=== PATIENT | female | born 1960 | race Caucasian/White ===

== ENCOUNTER → 2016-10-30 | Outpatient (CLI) | payer OTHER | END | disposition home or self-care (01) | LOC: C.PAPS 12:39 | PROVIDERS: ATTEND Obstetrics & Gynecology | DX: Z01.419 Encounter for gynecological examination (general) (routine) without abnormal findings (principal) ==

== ENCOUNTER → 2017-10-06 | Outpatient (CLI) | payer OTHER ==
--- NOTE | 2017-10-07 13:29 | MAMMOGRAPHY REPORT ---
BILATERAL DIGITAL SCREENING MAMMOGRAM TOMOSYNTHESIS WITH CAD: 10/06/2017 CLINICAL HISTORY: Routine screening. Patient has no complaints. TECHNIQUE: Breast tomosynthesis in addition to standard 2D mammography was performed. Current study was also evaluated with a Computer Aided Detection (CAD) system. COMPARISON: Comparison is made to exams dated: 08/09/2016 mammogram, 04/13/2015 mammogram, 12/21/2013 m ammogram, 12/15/2012 mammogram, 12/09/2011 mammogram, and 12/03/2010 mammogram - [facility] ter. BREAST COMPOSITION: There are scattered areas of fibroglandular density in both breasts. FINDINGS: The parenchymal pattern is unchanged. No developing mass, architectural distortion or clus ter of suspicious microcalcifications is seen in either breast. IMPRESSION: ACR BI-RADS CATEGORY 2: BENIGN There is no mammographic evidence of malignancy. A 1 year screening mammogram is recommended. The pa tient will receive written notification of the results. Approximately 10% of breast cancers are not detected with mammography. A negative mammographic report should not delay biopsy if a clinically suggestive mass is present. Va Yang M.D. ay/:10/06/2017 16:23:26 Contract Attorney: Amy ALBERT(Daija)(Jasmine), [facility] letter sent: Normal 1/2 BI-RADS Code: ACR BI-RADS Category 2: Benign
== END | disposition home or self-care (01) ==
LOC: C.MAMM 13:07
PROVIDERS: ATTEND Obstetrics & Gynecology
DX: Z12.31 Encounter for screening mammogram for malignant neoplasm of breast (principal)

== ENCOUNTER → 2017-11-21 | Outpatient (CLI) | payer OTHER | END | disposition home or self-care (01) | LOC: C.PAPS 16:01 | PROVIDERS: ATTEND Obstetrics & Gynecology | DX: Z01.419 Encounter for gynecological examination (general) (routine) without abnormal findings (principal) ==

== ENCOUNTER → 2017-12-10 | Outpatient (CLI) | payer OTHER ==
[2017-12-10 13:33] LABS: BLOOD UREA NITROGEN 11 mg/dl (7-18); CALCIUM 8.9 mg/dl (8.5-10.1); CARBON DIOXIDE 30 mmol/L (21-32); CHOLESTEROL 190 mg/dl (0-200); CREATININE 0.77 mg/dl (0.60-1.20); GLUCOSE 100 mg/dl (70-99); POTASSIUM 3.8 mmol/L (3.5-5.1); SODIUM 137 mmol/L (136-145)
[2017-12-10 13:43] LABS: LDL CHOLESTEROL CALCULATED 101 mg/dl
== END | disposition home or self-care (01) ==
LOC: C.LABPVFM 11:01
PROVIDERS: ATTEND Nurse Practitioner
DX: Z13.1 Encounter for screening for diabetes mellitus (principal); Z13.220 Encounter for screening for lipoid disorders; Z13.29 Encounter for screening for other suspected endocrine disorder

== ENCOUNTER 2020-05-03 10:04 | Observation (INO) ==
--- NOTE | 2020-03-31 16:11 | PAT Medication Instructions ---
Medication Instructions Date of Service March 31, 2020 Home Medications Medication Instructions Recorded tramadol 50 mg tablet 50 mg PO Q6H PRN #20 tab 12/07/19 mnucixyh-xey-nntwuoy sulfate 4.5 mg iron tablet 1 mg PO QAM tramadol 50 mg tablet 50 mg PO Q6H PRN Probiotic 1 tab PO QAM ibuprofen [Advil] 200 mg PO Q6H PRN omeprazole 20 mg PO DAILY PRN turmeric 400 mg PO QAM ASK your surgeon for instructions ibuprofen [Advil] 200 mg PO Q6H PRN STOP taking 2 weeks before surgery turmeric 400 mg PO QAM DO NOT take the morning of surgery memaqcre-sfo-jcqwtia sulfate 4.5 mg iron tablet 1 mg PO QAM Probiotic 1 tab PO QAM Take morning of surgery With a small sip of water, OTHERWISE NOTHING TO EAT OR DRINK AFTER MIDNIGHT: tramadol 50 mg tablet 50 mg PO Q6H PRN (okay to take up to 4 hours prior to surgery if needed) omeprazole 20 mg PO DAILY PRN (if needed) Take evening before surgery tramadol 50 mg tablet 50 mg PO Q6H PRN (if needed) Other Notes If you have any questions please call us at [phone] or [phone] or [phone] or [phone]
--- NOTE | 2020-04-03 12:48 | Anesthesiology Consultation ---
Date of Service April 03, 2020 Assessment & Plan (1) Encounter for pre-operative examination: "TERESA" COVID Status: As of 04/03 assessment, patient denies travel to endemic area, known exposure/sick contacts, or symptoms of COVID19. Patient instructed that they and their household members must follow strict social distancing guidelines, wear a mask in public and avoid travel for 14 days prior to surgery. Preoperative COVID19 testing to be completed prior to surgery per surgeon's arrangements. Patient made aware to self-isolate as much as possible between COVID testing and surgery. Chart Review Chart Review: Acceptable Risk for Surgery (pending surgeon ordered PCP clearance) and Patient seen in Pre Admission Testing Teaching & Discussion Instructed NPO after midnight before surgery, except medications with 15 cc of water. Medication instructions provided according to the PAT guidelines. History Surgery Operation Date: 05/03/20 13:00 Proposed Procedures p Left Total Knee Arthroplasty - Jay Waggoner DO Height/Weight Height: 5 ft 3.5 in Weight: 95 kg Allergies Allergy/AdvReac Type Severity Reaction Status Date / Time diphenhydramine AdvReac Unknown Anxiety Verified 03/29/20 12:20 celecoxib [From Celebrex] AdvReac mouth Verified 03/29/20 11:26 ulcers diclofenac AdvReac mouth Verified 03/29/20 11:26 ulcers tramadol AdvReac itching, Verified 03/29/20 12:20 mouth ulcers Medications Home Medications Medication Instructions Recorded Confirmed Last Taken zwojthku-tru-nqfabve sulfate 4.5 1 mg PO QAM tab 04/29/19 03/29/20 06/23/19 mg iron tablet tramadol 50 mg tablet 50 mg PO Q6H PRN #20 tab 12/07/19 03/29/20 Unknown Probiotic 1 tab PO QAM 03/29/20 03/29/20 Unknown ibuprofen [Advil] 200 mg PO Q6H PRN 03/29/20 03/29/20 Unknown omeprazole 20 mg PO DAILY PRN 03/29/20 03/29/20 Unknown turmeric 400 mg PO QAM 03/29/20 03/29/20 Unknown Past Medical History Medical History Bulging lumbar disc (Acute) Chronic back pain GERD (gastroesophageal reflux disease) only takes omeprazole with NSAIDS PRN History of nephrolithiasis Hx of menorrhagia Knee pain, left (Acute) Low back pain (Acute) Osteoarthritis Radicular leg pain (Acute) Exercise / Class Metabolic Activity II 4-5 Yardwork/Stairs/Walk up hill (Denies CP or SOB with 1 FOS) Past Surgical History Surgical History History of arthroscopy of left knee History of breast biopsy History of carpal tunnel release BL History of colonoscopy History of lithotripsy History of tooth extraction Trigger finger right and left hand Past Anesthesia History No Hx of Anesthesia Complications and No Family Hx of Anesthesia Complications History of PONV No Hx of PONV and No Hx of Motion Sickness Social History Smoking Status: Never smoker Do You Dip or Chew Tobacco: No Hx Alcohol Use: No Hx Substance Use: No substance use type: does not use Review of Systems Pt denies any recent chest pain, shortness of breath, palpitations, cough, fever, URI, or uncontrolled acid reflux. Physical Exam Vital Signs BP: 127/79 P: 89bpm SPO2: 96% RA T: 98.8 F R: 16 ENMT Mouth: no dental restorations, no chipped teeth and no loose teeth Thyromental Distance: > or= 3.5 Finger Breadths (3.5) Mallampati Class: I Neck normal visual inspection; neck extension not limited Respiratory normal respiratory effort Auscultation: lungs clear to auscultation bilaterally Cardiovascular Rate/Rhythm: regular rate and regular rhythm Heart Sounds: no murmur Extremities: no edema Testing Laboratory Results 04/03/20 13:37 04/03/20 13:37 PT 10.3 Seconds (9.0-12.0) 04/03/20 13:37 INR 1.0 (0.9-1.1) 04/03/20 13:37 APTT 29.8 Seconds (21.0-31.0) 04/03/20 13:37 Hemoglobin A1c 5.8 % (4.5-5.6) H 04/03/20 13:37 Urine Color Yellow 04/03/20 13:37 Urine Appearance Clear (Clear) 04/03/20 13:37 Urine pH 6.5 (4.5-7.5) 04/03/20 13:37 Ur Specific [place] 1.011 (1.000-1.030) 04/03/20 13:37 Urine Protein Negative (Negative) 04/03/20 13:37 Urine Glucose (UA) Negative (Negative) 04/03/20 13:37 Urine Ketones Negative (Negative) 04/03/20 13:37 Urine Nitrite Negative (Negative) 04/03/20 13:37 Ur Leukocyte Esterase Negative (Negative) 04/03/20 13:37 Blood Type O Positive 04/03/20 13:37 Antibody Screen NEGATIVE 04/03/20 13:37 Electrocardiogram Date: 04/03/20 Findings: + NSR @ (82bpm with sinus arrhythmia) Right atrial enlargement. No significant change from 01/19/19. Chest X-Ray Date: 04/03/20 Findings: + NAD
--- NOTE | 2020-04-03 14:01 | XRay Report ---
TWO VIEW CHEST CLINICAL HISTORY: Preoperative examination. FINDINGS: PA and lateral chest radiographs are compared to study dated 05/06/2018. The cardiomediastina l silhouette is unremarkable. The lungs and pleural spaces are clear. There is no pneumothorax. The bony thorax appears intact. Mild degenerative change is noted throughout the thoracic spine. IMPRESSION: No active disease in the chest. ACT 112: Negative or not required by law. Electronically signed by: Gee Morrissey M.D. 04/03/2020 1:59 PM
[2020-04-03 15:42] LABS: Basophils # (auto) 0.02 K/uL (0-0.2); Basophils % (auto) 0.2 %; Eosinophils # (auto) 0.12 K/uL (0-0.5); Eosinophils % (auto) 1.4 %; Hematocrit (blood only) 44.1 % (37-47); Hemoglobin 14.4 g/dL (12.0-16.0); Immature Granulocytes # (auto) 0.02 K/uL (0.00-0.02); Immature Granulocytes % (auto) 0.2 %; Lymphocytes # (auto) 1.74 K/uL (1.2-3.4); Lymphocytes % (auto) 19.9 %; Mean Corpuscular Hemoglobin 28.2 pg (25-34); Mean Corpuscular Hgb Conc 32.7 g/dL (32-36); Mean Corpuscular Volume 86.5 fL (80-100); Mean Platelet Volume 10.4 fL (7.4-10.4); Monocytes # (auto) 0.63 K/uL (0.11-0.59); Monocytes % (auto) 7.2 %; Neutrophils % (auto) 71.1 %; Platelet Count 269 K/uL (130-400); RDW Coefficient of Variation 13.6 % (11.5-14.5); RDW Standard Deviation 42.9 fL (36.4-46.3); White Blood Count 8.73 K/uL (4.8-10.8)
[2020-04-03 15:55] LABS: Albumin Level 3.8 gm/dl (3.4-5.0); BUN Creatinine Ratio 12.5 (10-20); Calcium 8.9 mg/dl (8.5-10.1); Creatinine Clr Calc Pharmacy 79.9 ml/min; Est GFR (African American) 87.5; Est GFR (Non-African American) 75.5; Potassium 4.3 mmol/L (3.5-5.1)
[2020-04-03 15:58] LABS: Partial Thromboplastin Ratio 1.1; Partial Thromboplastin Time 29.8 Seconds (21.0-31.0); Prothrombin Time 10.3 Seconds (9.0-12.0)
[2020-04-03 15:59] LABS: Appearance Urine Clear (Clear); Bilirubin Urine Negative (Negative); Blood Urine Negative (Negative); Color Urine Yellow; Glucose Urine UA Negative (Negative); Ketones Urine Negative (Negative); Leukocyte Esterase Urine Negative (Negative); Nitrite Urine Negative (Negative); Protein Urine Negative (Negative); Specific Gravity Urine 1.011 (1.000-1.030); Urobilinogen Urine Negative (Negative); pH Urine 6.5 (4.5-7.5)
--- NOTE | 2020-04-03 17:59 | Electrocardiogram Report ---
Test Reason : Blood Pressure : / mmHG Vent. Rate : 082 BPM Atrial Rate : 082 BPM P-R Int : 126 ms QRS Dur : 088 ms QT Int : 366 ms P-R-T Axes : 080 084 062 degrees QTc Int : 427 ms Normal sinus rhythm with sinus arrhythmia Right atrial enlargement Borderline ECG When compared with ECG of 19-JAN-2019 14:40, No significant change was found Confirmed by Awais Person ([id number]) on 04/03/2020 5:59:28 PM Referred By: Jay Waggoner Confirmed By:Austin Person
[2020-04-04 05:49] LABS: Estimated Average Glucose 120 mg/dl; Hemoglobin A1C 5.8 % (4.5-5.6)
--- NOTE | 2020-04-10 08:26 | History & Physical Report ---
Date of Service April 10, 2020 date of surgery: 05-03-20 Procedure: Left Total Knee Arthroplasty Assessment & Plan (1) Arthritis of knee, left: Further care discussed with patient and at this point in time has failed conservative measures and would like to proceed with a left total knee rep lacement. Plan on discharge will be home with home health physical therapy. DVT prophalaxis with TEDs, SCDs and will also place on aspirin 81 mg p.o. b.i.d. for a month postop. Patient will have follow up appointment in our office two weeks post op for staple/suture removal and re-evaluation. Patient otherwise has no other questions or concerns. History of Present Illness Chief Complaint: left knee pain Primary Care Provider: MELL Ferraro Silva is a 59 year old female who complains of left knee pain, presents for pre-op evaluation prior to a left total knee replacement by dr Waggoner at [facility]. she complains of pain, crepitus, decreased range of motion, instability and stiffness in her left knee. she states that the symptoms have been chronic and non-traumatic. she states that the symptoms occur constantly with intermittent worsening. Currently the patient states that the symptoms are moderate-severe. The pain is described as aching, sharp and throbbing. The symptoms occur continuously. The symptoms are aggravated by ascending stairs, daily activities, first steps while awake walking. she has been treated with previous visco injections in the past without much relief. she has also had Pt and sometimes uses a knee brace. she had prior knee arthroscopy without any improvement. Allergies Allergy/AdvReac Type Severity Reaction Status Date / Time diphenhydramine AdvReac Unknown Anxiety Verified 03/29/20 12:20 celecoxib [From Celebrex] AdvReac mouth Verified 03/29/20 11:26 ulcers diclofenac AdvReac mouth Verified 03/29/20 11:26 ulcers tramadol AdvReac itching, Verified 03/29/20 12:20 mouth ulcers Home Medications Home Medications Medication Instructions Recorded Confirmed Type odsjyujn-zbh-mxlihht sulfate 4.5 1 mg PO QAM tab 04/29/19 03/29/20 History mg iron tablet tramadol 50 mg tablet 50 mg PO Q6H PRN #20 tab 12/07/19 03/29/20 Rx Probiotic 1 tab PO QAM 03/29/20 03/29/20 History ibuprofen [Advil] 200 mg PO Q6H PRN 03/29/20 03/29/20 History omeprazole 20 mg PO DAILY PRN 03/29/20 03/29/20 History turmeric 400 mg PO QAM 03/29/20 03/29/20 History Past Med/Surg History Medical History Bulging lumbar disc (Acute) Chronic back pain GERD (gastroesophageal reflux disease) only takes omeprazole with NSAIDS PRN History of nephrolithiasis Hx of menorrhagia Knee pain, left (Acute) Low back pain (Acute) Osteoarthritis Radicular leg pain (Acute) Surgical History History of arthroscopy of left knee History of breast biopsy History of carpal tunnel release BL History of colonoscopy History of lithotripsy History of tooth extraction Trigger finger right and left hand Social History Smoking Status: Never smoker Second Hand Exposure: Yes (as a child); Do You Dip or Chew Tobacco: No; Hx Alcohol Use: No Hx Substance Use: No Preferred Language: Luxembourgish Communication Ability: Effective Billet Shearer Required: No Beliefs That Will Affect Care: Shinto Shinto Beliefs: sabianist Current Living Situation: Spouse current occupational status: employed Feels Safe at Home: Yes Safety Concerns: Feels Safe At This Time Physical Activity Frequency: 5-6 Times per Week Review of Systems Review of Systems: All systems reviewed & are unremarkable except as noted in HPI & below Constitutional: no fever, no chills and no sweats Respiratory: no cough and no dyspnea Cardiovascular: no chest pain, no dyspnea and no orthopnea Gastrointestinal: no abdominal pain, no nausea and no vomiting Musculoskeletal: as per Subjective / HPI Physical Exam Physical Exam: Ht: 5ft 3.5in Wt: 95kg Constitutional: WD/WN, vitals as above no acute distress Respiratory: normal respiratory effort, lungs clear to auscultation no respiratory distress, no labored breathing and does not use accessory muscles Cardiovascular: RRR, no murmur, no edema Gastrointestinal (Abdomen): normal bowel sounds, soft, nontender, no hepatosplenomegaly Musculoskeletal: Knee: + knee abnormal to inspection (Left knee), + effusion (+1 effusion), + surgical incision (well healed portals), + limited ROM of knee (ROM 0/3/110), + knee ROM with crepitation, + joint line tenderness (medial joint line) and + Kenn's sign positive; no deformity, no skin erythema, no ecchymosis, no valgus laxity, no varus laxity, anterior drawer test negative, Ruby's sign negative and pivot shift test negative Results & Data Results & Data ([facility]) Laboratory Results Laboratory Results WBC 8.73 K/uL (4.8-10.8) 04/03/20 13:37 RBC 5.10 M/uL (4.2-5.4) 04/03/20 13:37 Hgb 14.4 g/dL (12.0-16.0) 04/03/20 13:37 Hct 44.1 % (37-47) 04/03/20 13:37 MCV 86.5 fL (80-100) 04/03/20 13:37 MCH 28.2 pg (25-34) 04/03/20 13:37 MCHC 32.7 g/dL (32-36) 04/03/20 13:37 RDW Std Deviation 42.9 fL (36.4-46.3) 04/03/20 13:37 RDW Coeff of Debra 13.6 % (11.5-14.5) 04/03/20 13:37 Plt Count 269 K/uL (130-400) 04/03/20 13:37 MPV 10.4 fL (7.4-10.4) 04/03/20 13:37 Immature Gran % (Auto) 0.2 % 04/03/20 13:37 Neut % (Auto) 71.1 % 04/03/20 13:37 Lymph % (Auto) 19.9 % 04/03/20 13:37 [place] % (Auto) 7.2 % 04/03/20 13:37 Eos % (Auto) 1.4 % 04/03/20 13:37 Baso % (Auto) 0.2 % 04/03/20 13:37 Neut # (Auto) 6.20 K/uL (1.4-6.5) 04/03/20 13:37 Lymph # (Auto) 1.74 K/uL (1.2-3.4) 04/03/20 13:37 [place]dwell # (Auto) 0.63 K/uL (0.11-0.59) H 04/03/20 13:37 Eos # (Auto) 0.12 K/uL (0-0.5) 04/03/20 13:37 Baso # (Auto) 0.02 K/uL (0-0.2) 04/03/20 13:37 Immature Gran # (Auto) 0.02 K/uL (0.00-0.02) 04/03/20 13:37 PT 10.3 Seconds (9.0-12.0) 04/03/20 13:37 INR 1.0 (0.9-1.1) 04/03/20 13:37 APTT 29.8 Seconds (21.0-31.0) 04/03/20 13:37 PTT Ratio 1.1 04/03/20 13:37 Sodium 142 mmol/L (136-145) 04/03/20 13:37 Potassium 4.3 mmol/L (3.5-5.1) 04/03/20 13:37 Chloride 109 mmol/L (98-107) H 04/03/20 13:37 Carbon Dioxide 29 mmol/L (21-32) 04/03/20 13:37 Anion Gap 4.0 (3-11) 04/03/20 13:37 BUN 11 mg/dl (7-18) 04/03/20 13:37 Creatinine 0.85 mg/dl (0.6-1.2) 04/03/20 13:37 Est Cr Clr Drug Dosing 79.9 ml/min 04/03/20 13:37 Est GFR ( Amer) 87.5 04/03/20 13:37 Est GFR (Non-Af Amer) 75.5 04/03/20 13:37 BUN/Creatinine Ratio 12.5 (10-20) 04/03/20 13:37 Glucose 147 mg/dl (70-99) H 04/03/20 13:37 Estimat Average Glucose 120 mg/dl 04/03/20 13:37 Hemoglobin A1c 5.8 % (4.5-5.6) H 04/03/20 13:37 Calcium 8.9 mg/dl (8.5-10.1) 04/03/20 13:37 Albumin 3.8 gm/dl (3.4-5.0) 04/03/20 13:37 Urine Color Yellow 04/03/20 13:37 Urine Appearance Clear (Clear) 04/03/20 13:37 Urine pH 6.5 (4.5-7.5) 04/03/20 13:37 Ur Specific [place] 1.011 (1.000-1.030) 04/03/20 13:37 Urine Protein Negative (Negative) 04/03/20 13:37 Urine Glucose (UA) Negative (Negative) 04/03/20 13:37 Urine Ketones Negative (Negative) 04/03/20 13:37 Urine Blood Negative (Negative) 04/03/20 13:37 Urine Nitrite Negative (Negative) 04/03/20 13:37 Urine Bilirubin Negative (Negative) 04/03/20 13:37 Urine Urobilinogen Negative (Negative) 04/03/20 13:37 Ur Leukocyte Esterase Negative (Negative) 04/03/20 13:37 Blood Type O Positive 04/03/20 13:37 Antibody Screen NEGATIVE 04/03/20 13:37 Diagnostic Findings Left Knee X-ray: left knee series confirms degenerative changes to the left knee, greatest medial compartments and patellofemoral joint, showing joint space narrowing, osteophyte formation and subchondral sclerosis. no acute bony pathology noted.
[~2020-05-03 10:04] MED LIST: ACETAMINOPHEN 500 MG TAB PO SCH; BUPIVACAINE 0.25% 30 ML VIAL ONE; BUPIVACAINE 0.5 % 5 MG/1 ML PF 10ML VIAL ONE; CEFAZOLIN 2000MG 2,000 MG/15 ML SYR IV SCH; FAMOTIDINE 20 MG TAB PO SCH; GABAPENTIN 600 MG DOSE PO SCH; LR 500ML BOLUS, THEN 15ML/HR IV SCH; METOCLOPRAMIDE HCL 10 MG TABLET PO SCH; ROPIVACAINE 0.5% HCL/PF 150 MG, BUPIVACAINE 0.5% MPF 30 ML, EPINEPHrine 30MG/30ML (OR U... INSTIL SCH; TRANEXAMIC ACID 1,000 MG **IV Intra-op IV SCH; TRANEXAMIC ACID 1,000 MG **IV Pre-op IV SCH; dexAMETHasone 4 MG TAB PO SCH
--- NOTE | 2020-05-03 10:35 | History & Physical Bridge Note ---
Date of Service May 03, 2020 History & Physical Bridge Note I have examined the patient, reviewed the History & Physical and in the interval since the performance of the History & Physical I have noted the following changes of clinical significance: no changes noted
[2020-05-03] MEDS ORDERED: MIDAZOLAM HCL 1 MG/ML 2ML VIAL ONE ×2 (11:44→13:13)
[2020-05-03] MEDS ORDERED: ORTHO JOINT ANESTHETIC ONE (12:15)
[2020-05-03] MEDS ORDERED: BACITRACIN INJ 50,000 UNIT VIAL ONE (12:16)
[2020-05-03] MEDS ORDERED: ePHEDrine sulfate 50 MG/ML AMP IV PRN (12:26)
[2020-05-03] MEDS ORDERED: fentaNYL citrate 100 MCG/2 ML VIAL IV PRN (12:26)
[2020-05-03] MEDS ORDERED: ATROPINE SULFATE 0.1 MG/ML 10ML SYR IV PRN (12:26)
[2020-05-03] MEDS ORDERED: ONDANSETRON INJ 2 MG/ML 2 ML VIAL IV PRN ×2 (12:26→15:33)
[2020-05-03] MEDS ORDERED: PROPOFOL IV EMULSION 10 MG/ML 20 ML VIAL IV ONE (13:09)
--- NOTE | 2020-05-03 13:50 | Operative Report ---
Post Operative Report Pre & Post Diagnosis Operation Date: 05/03/20 13:35 Pre-Op Diagnosis: Unilateral Primary Osteoarthritis, Left Knee Post-Op Diagnosis: Unilateral Primary Osteoarthritis, Left Knee I identified the patient and participated in the time-out.: Yes Procedure Operation Date: 05/03/20 13:35 Actual Procedures p Left Total Knee Arthroplasty(Left) utilizing [employer]wal [employer] Nephew journey 2 patient matched femur size 3 tibia size 2 poly-to size 12 patella size 29- Jay Waggoner DO Surgeon Jay Waggoner DO Turn Machine Operator Javon ULRICH Estimated Blood Loss 5 Findings Consistent with Post-Op Diagnosis Patient presents with severe end-stage tricompartmental degenerative joint disease varus alignment left knee with subchondral sclerosis marginal osteophytes antb-nw-fjnb eburnated bone and marginal moderate moderate to large effusion Specimens Bone and cartilage Drains Medium bore Hemovac Anesthesia Type MAC Spinal Regional Complications none Disposition Accompanied Patient To Recovery: No Disposition: Recovery Room Indications Patient presents after failed attempted conservative management clinic physical therapy anti-inflammatories relative rest activity modification corticosteroid injections Visco supplementation the above intraoperative findings are noted Description of Procedure After proper prepping and draping of the left lower extremity anterior midline incision was made over the region of the extensor extensor mechanism after meticulous hemostasis was obtained and maintained in subcutaneous tissues a medial parapatellar incision was made The patella was subluxed lateralward the medial lateral gutter were cleaned from any hypertrophic synovitis and scar tissue of the distal femoral block was placed and the distal femoral osteotomy cut was made subsequently the chamfers anterior and posterior osteotomy cuts were made utilizing the 4-in-1 block the tibia was subsequently subluxed anteriorward medial and ateral meniscal remnants were excised in their entirety remnants of the anterior and posterior cruciate ligaments were excised in their entirety excellent exposure of the proximal tibia was obtained the tibial osteotomy guide was placed on the proximal tibial osteotomy cut was made once again the knee was irrigated with copious amounts of sterile saline solution the patella was subsequently everted lateralward thickened scar tissue around the patella was removed the patella was subsequently cut utilizing a freehand technique and was drilled prepared for final preparation and placement of patella socially flexion-extension gaps were checked and the equal and symmetric trials were placed to the appropriate femoral and tibial trials with poly-spacer being placed for equal flexion and extension gaps and full range of motion including extension to 0 and flexion to 140 the trial components after having been taken to recovery range of motion was subsequently removed meticulous hemostasis was obtained and maintained subsequently a knee block injection of joint cocktail including ropivacaine 0.5% 150 mg. Bupivacaine 0.5% epinephrine 1-200,030 mL's toradol 30 mg dexamethasone 4 mg ketamine 10 mg clonidine 100 micrograms normal saline solution 30 mg was infiltrated into the soft tissues of the posterior knee medial lateral gutters and periosteal synovium special attention was paid to protect neurovascular structures at all times subsequently trial components having been removed the knee was irrigated with sterile saline solution. debris was removed the proximal tibia was subsequently prepared and was made ready for the placement of the tibial component tibial component was also cemented and tamped into position the femoral component was subsequently placed and cemented in the position the patellar component was subsequently cemented in position because hemostasis once again obtained and maintained wound having been thoroughly irrigated with debridement and debridement lavage was performed as well as a medial parapatellar incision closed with #1 Vicryl in interrupted fashion subcutaneous was closed with #2 Vicryl skin was closed with skin clips. PA-C was necessary for prepping and drapping as well as wound closure of deep fascia Sub cutaneous tissue and skin and was necessary for the case. A sterile compressive dressing was placed patient was taken to recovery in stable condition of report dictated by Edilson I attest to the content of the Intraoperative Record and any orders documented therein. Any exceptions are noted below. I attest to the content of the Intraoperative Record and any orders documented therein. Any exceptions are noted below.
--- NOTE | 2020-05-03 14:55 | XRay Report ---
XR knee LT 1 or 2V routine HISTORY: 60 years-old Female Surgical Post Op left knee total joint arthroplasty COMPARISON: Left tibia and fibula radiographs 03/08/2019 TECHNIQUE: 2 views of the left knee FINDINGS: Left knee total joint arthroplasty and patella resurfacing. There is satisfactory alignment without a cute fracture or opaque foreign body. Expected postsurgical soft tissue swelling and deep tissue air with surgical drainage catheter. IMPRESSION: Left knee total joint arthroplasty and patella resurfacing with expected postoperative ch anges. ACT 112: Negative or not required by law. The above report was generated using voice recognition software. It may contain grammatical, syntax o r spelling errors. Electronically signed by: Jair Canales M.D. 05/03/2020 2:53 PM
[2020-05-03] MEDS ORDERED: METOCLOPRAMIDE HCL INJ 5 MG/ML 2 ML VIAL IV PRN (15:33)
[2020-05-03] MEDS ORDERED: SODIUM CHLORIDE 0.9% 1000ML 1,000 ML IV SCH (15:33)
[2020-05-03] MEDS ORDERED: MAGNESIUM HYDROXIDE SUSP 30 ML UDC PO PRN (15:33)
[2020-05-03] MEDS ORDERED: bisacodyL 10 MG SUPP PR PRN (15:33)
[2020-05-03] MEDS ORDERED: NALOXONE HCL 0.4 MG/1 ML VIAL/CARP IV PRN (15:33)
[2020-05-03] MEDS: ACETAMINOPHEN 500 MG TAB PO SCH ×2 (16:29→23:32)
[2020-05-03] MEDS: KETOROLAC TROMETHAMINE 15 MG/ML VIAL IV SCH ×2 (16:30→21:35)
[2020-05-03] MEDS: CEFAZOLIN 2000MG 2,000 MG/15 ML SYR IV SCH (21:24)
[2020-05-03] MEDS: ASPIRIN 81 MG ECTAB PO SCH (21:24)
[2020-05-03] MEDS: DOCUSATE SODIUM 100 MG CAP PO SCH (21:24)
[2020-05-03] MEDS: SENNA 8.6 MG TAB PO SCH (21:24)
[2020-05-04] MEDS: HYDROmorphone INJ 1 MG/ML SYRINGE IV PRN ×2 (01:00→19:12)
[2020-05-04] MEDS: CEFAZOLIN 2000MG 2,000 MG/15 ML SYR IV SCH (03:45)
[2020-05-04] MEDS: KETOROLAC TROMETHAMINE 15 MG/ML VIAL IV SCH ×2 (03:45→09:30)
[2020-05-04 06:18] LABS: Hematocrit (blood only) 40.6 % (37-47); Hemoglobin 13.4 g/dL (12.0-16.0); Mean Corpuscular Hemoglobin 28.7 pg (25-34); Mean Corpuscular Volume 86.9 fL (80-100); Mean Platelet Volume 10.1 fL (7.4-10.4); Platelet Count 296 K/uL (130-400); RDW Coefficient of Variation 13.8 % (11.5-14.5); RDW Standard Deviation 43.5 fL (36.4-46.3); Red Blood Count 4.67 M/uL (4.2-5.4); White Blood Count 18.13 K/uL (4.8-10.8)
[2020-05-04 06:50] LABS: BUN Creatinine Ratio 16.9 (10-20); Calcium 8.8 mg/dl (8.5-10.1); Creatinine Clr Calc Pharmacy 99.1 ml/min; Est GFR (African American) 111.5; Est GFR (Non-African American) 96.2; Potassium 3.8 mmol/L (3.5-5.1)
--- NOTE | 2020-05-04 08:18 | Orthopedic Progress Note ---
Date of Service May 04, 2020 Assessment & Plan (1) Arthritis of knee, left: Postop day 1 status post left total knee arthroplasty. PT/OT protocols. Weightbearing as tolerated. Foot drop symptoms likely secondary to intraoperative injection. Follow for now. DVT prophylaxis with aspirin p.o. twice daily, SCDs. Continue current pain regimen as written. Leukocytosis-patient currently asymptomatic. Likely due to preoperative steroids and surgical stress. DC planning-patient planning for outpatient PT upon discharge. Admission and Anticipated Discharge Date Admission Date: May 03, 2020 Subjective Postop day 1 Patient currently sitting up in bed.States she did not have much sleep but is otherwise doing okay. She states that some of the pain medications does cause her to have some itching. She has had this in the past. She states she is currently tolerating it at this time. She is unable to take Benadryl due to the fact that it keeps her awake and does not cause drowsiness. She states that she is unable to move her foot this morning and has numbness in the top of her foot on the operative side. She denies shortness of breath, chest pain, lightheadedness. She had no other complaints. Physical Exam Physical Exam: Dressings are clean, dry, and intact. She has decreased sensation on the dorsum of her foot and only has a slight ability to dorsiflex the foot/ankle at this time. She has some mild calf tenderness which she states she has a previous history of a muscle tear in the calf which she has been dealing with. Hemovac drainage was minimal this morning. Results & Data ([facility]) Vital Signs (Past 12 Hours) Vital Signs Temp Pulse Resp BP Pulse Ox 05/04/20 07:23 36.5 C 85 16 135/73 98 05/04/20 03:45 36.7 C 92 H 16 131/73 97 05/03/20 23:45 36.8 C 89 16 128/72 95 Laboratory Results Laboratory Results WBC 18.13 K/uL (4.8-10.8) H 05/04/20 05:37 RBC 4.67 M/uL (4.2-5.4) 05/04/20 05:37 Hgb 13.4 g/dL (12.0-16.0) 05/04/20 05:37 Hct 40.6 % (37-47) 05/04/20 05:37 MCV 86.9 fL (80-100) 05/04/20 05:37 MCH 28.7 pg (25-34) 05/04/20 05:37 MCHC 33.0 g/dL (32-36) 05/04/20 05:37 RDW Std Deviation 43.5 fL (36.4-46.3) 05/04/20 05:37 RDW Coeff of Debra 13.8 % (11.5-14.5) 05/04/20 05:37 Plt Count 296 K/uL (130-400) 05/04/20 05:37 MPV 10.1 fL (7.4-10.4) 05/04/20 05:37 Immature Gran % (Auto) 0.2 % 04/03/20 13:37 Neut % (Auto) 71.1 % 04/03/20 13:37 Lymph % (Auto) 19.9 % 04/03/20 13:37 [place] % (Auto) 7.2 % 04/03/20 13:37 Eos % (Auto) 1.4 % 04/03/20 13:37 Baso % (Auto) 0.2 % 04/03/20 13:37 Neut # (Auto) 6.20 K/uL (1.4-6.5) 04/03/20 13:37 Lymph # (Auto) 1.74 K/uL (1.2-3.4) 04/03/20 13:37 [place] # (Auto) 0.63 K/uL (0.11-0.59) H 04/03/20 13:37 Eos # (Auto) 0.12 K/uL (0-0.5) 04/03/20 13:37 Baso # (Auto) 0.02 K/uL (0-0.2) 04/03/20 13:37 Immature Gran # (Auto) 0.02 K/uL (0.00-0.02) 04/03/20 13:37 PT 10.3 Seconds (9.0-12.0) 04/03/20 13:37 INR 1.0 (0.9-1.1) 04/03/20 13:37 APTT 29.8 Seconds (21.0-31.0) 04/03/20 13:37 PTT Ratio 1.1 04/03/20 13:37 Sodium 142 mmol/L (136-145) 05/04/20 05:37 Potassium 3.8 mmol/L (3.5-5.1) 05/04/20 05:37 Chloride 110 mmol/L (98-107) H 05/04/20 05:37 Carbon Dioxide 23 mmol/L (21-32) 05/04/20 05:37 Anion Gap 9.0 (3-11) 05/04/20 05:37 BUN 11 mg/dl (7-18) 05/04/20 05:37 Creatinine 0.67 mg/dl (0.6-1.2) 05/04/20 05:37 Est Cr Clr Drug Dosing 99.1 ml/min 05/04/20 05:37 Est GFR ( Amer) 111.5 05/04/20 05:37 Est GFR (Non-Af Amer) 96.2 05/04/20 05:37 BUN/Creatinine Ratio 16.9 (10-20) 05/04/20 05:37 Glucose 99 mg/dl (70-99) 05/04/20 05:37 Estimat Average Glucose 120 mg/dl 04/03/20 13:37 Hemoglobin A1c 5.8 % (4.5-5.6) H 04/03/20 13:37 Calcium 8.8 mg/dl (8.5-10.1) 05/04/20 05:37 Albumin 3.8 gm/dl (3.4-5.0) 04/03/20 13:37 Urine Color Yellow 04/03/20 13:37 Urine Appearance Clear (Clear) 04/03/20 13:37 Urine pH 6.5 (4.5-7.5) 04/03/20 13:37 Ur Specific [place] 1.011 (1.000-1.030) 04/03/20 13:37 Urine Protein Negative (Negative) 04/03/20 13:37 Urine Glucose (UA) Negative (Negative) 04/03/20 13:37 Urine Ketones Negative (Negative) 04/03/20 13:37 Urine Blood Negative (Negative) 04/03/20 13:37 Urine Nitrite Negative (Negative) 04/03/20 13:37 Urine Bilirubin Negative (Negative) 04/03/20 13:37 Urine Urobilinogen Negative (Negative) 04/03/20 13:37 Ur Leukocyte Esterase Negative (Negative) 04/03/20 13:37 Blood Type O Positive 04/03/20 13:37 Antibody Screen NEGATIVE 04/03/20 13:37
[2020-05-04] MEDS: ACETAMINOPHEN 500 MG TAB PO SCH ×3 (08:23→23:46)
[2020-05-04] MEDS: MULTIVITAMIN TAB PO SCH (08:24)
[2020-05-04] MEDS: ASPIRIN 81 MG ECTAB PO SCH ×2 (08:25→20:32)
[2020-05-04] MEDS: DOCUSATE SODIUM 100 MG CAP PO SCH ×2 (08:25→20:32)
[2020-05-04] MEDS: OXYCODONE HCL IR 5 MG TAB (IMMEDIATE RELEASE) PO PRN ×4 (13:34→23:47)
[2020-05-04] MEDS: SENNA 8.6 MG TAB PO SCH (20:32)
[2020-05-05] MEDS: HYDROmorphone INJ 1 MG/ML SYRINGE IV PRN (01:22)
[2020-05-05] MEDS: OXYCODONE HCL IR 5 MG TAB (IMMEDIATE RELEASE) PO PRN ×3 (05:00→13:02)
--- NOTE | 2020-05-05 07:11 | Orthopedic Progress Note ---
Date of Service May 05, 2020 Assessment & Plan (1) History of total left knee replacement: POD #2 s/p Left TKA pt/ot dvt proph with JOE/SCD/ASA plan for d/c home with home health after PT today. Admission and Anticipated Discharge Date Admission Date: May 03, 2020 Subjective POD # 2 s/p Left TKA denies CP/SOB denies Fever/Chills painful but a little better this am Review of Systems Constitutional: no fever, no chills and no sweats Respiratory: no cough and no dyspnea Cardiovascular: no chest pain and no dyspnea Gastrointestinal: no abdominal pain, no nausea and no vomiting Physical Exam Physical Exam: Vital Signs Temp 36.6 C 05/04/20 23:18 Pulse 89 05/04/20 23:18 Resp 16 05/04/20 23:18 BP 112/70 05/04/20 23:18 Pulse Ox 95 05/04/20 23:18 Intake & Output 05/04/20 05/05/20 05/05/20 18:59 06:59 18:59 Intake Total 500 / 850 350 / 850 Output Total 625 / 1025 400 / 1025 Balance -125 / -175 -50 / -175 Intake: Oral 500 / 850 350 / 850 Output: Urine 500 / 800 300 / 800 Drain Output 125 / 225 100 / 225 Left Knee Hemo vac #1 125 / 225 100 / 225 Other: # Unmeasured Voi ds 1 Constitutional: WD/WN, vitals as above no acute distress Musculoskeletal: left lower extremity: NVDI, calf SNT, negative brenda sign. DP palpable, able to wiggle toes/ankle movement without difficulty. Dressing clean dry and intact. expected post-operative bruising noted. Results & Data ([facility]) Vital Signs (Past 12 Hours) Vital Signs Temp Pulse Resp BP Pulse Ox 05/04/20 23:18 36.6 C 89 16 112/70 95 Laboratory Results Laboratory Results WBC 18.13 K/uL (4.8-10.8) H 05/04/20 05:37 RBC 4.67 M/uL (4.2-5.4) 05/04/20 05:37 Hgb 13.4 g/dL (12.0-16.0) 05/04/20 05:37 Hct 40.6 % (37-47) 05/04/20 05:37 MCV 86.9 fL (80-100) 05/04/20 05:37 MCH 28.7 pg (25-34) 05/04/20 05:37 MCHC 33.0 g/dL (32-36) 05/04/20 05:37 RDW Std Deviation 43.5 fL (36.4-46.3) 05/04/20 05:37 RDW Coeff of Debra 13.8 % (11.5-14.5) 05/04/20 05:37 Plt Count 296 K/uL (130-400) 05/04/20 05:37 MPV 10.1 fL (7.4-10.4) 05/04/20 05:37 Immature Gran % (Auto) 0.2 % 04/03/20 13:37 Neut % (Auto) 71.1 % 04/03/20 13:37 Lymph % (Auto) 19.9 % 04/03/20 13:37 [place] % (Auto) 7.2 % 04/03/20 13:37 Eos % (Auto) 1.4 % 04/03/20 13:37 Baso % (Auto) 0.2 % 04/03/20 13:37 Neut # (Auto) 6.20 K/uL (1.4-6.5) 04/03/20 13:37 Lymph # (Auto) 1.74 K/uL (1.2-3.4) 04/03/20 13:37 [place] # (Auto) 0.63 K/uL (0.11-0.59) H 04/03/20 13:37 Eos # (Auto) 0.12 K/uL (0-0.5) 04/03/20 13:37 Baso # (Auto) 0.02 K/uL (0-0.2) 04/03/20 13:37 Immature Gran # (Auto) 0.02 K/uL (0.00-0.02) 04/03/20 13:37 PT 10.3 Seconds (9.0-12.0) 04/03/20 13:37 INR 1.0 (0.9-1.1) 04/03/20 13:37 APTT 29.8 Seconds (21.0-31.0) 04/03/20 13:37 PTT Ratio 1.1 04/03/20 13:37 Sodium 142 mmol/L (136-145) 05/04/20 05:37 Potassium 3.8 mmol/L (3.5-5.1) 05/04/20 05:37 Chloride 110 mmol/L (98-107) H 05/04/20 05:37 Carbon Dioxide 23 mmol/L (21-32) 05/04/20 05:37 Anion Gap 9.0 (3-11) 05/04/20 05:37 BUN 11 mg/dl (7-18) 05/04/20 05:37 Creatinine 0.67 mg/dl (0.6-1.2) 05/04/20 05:37 Est Cr Clr Drug Dosing 99.1 ml/min 05/04/20 05:37 Est GFR ( Amer) 111.5 05/04/20 05:37 Est GFR (Non-Af Amer) 96.2 05/04/20 05:37 BUN/Creatinine Ratio 16.9 (10-20) 05/04/20 05:37 Glucose 99 mg/dl (70-99) 05/04/20 05:37 Estimat Average Glucose 120 mg/dl 04/03/20 13:37 Hemoglobin A1c 5.8 % (4.5-5.6) H 04/03/20 13:37 Calcium 8.8 mg/dl (8.5-10.1) 05/04/20 05:37 Albumin 3.8 gm/dl (3.4-5.0) 04/03/20 13:37 Urine Color Yellow 04/03/20 13:37 Urine Appearance Clear (Clear) 04/03/20 13:37 Urine pH 6.5 (4.5-7.5) 04/03/20 13:37 Ur Specific [place] 1.011 (1.000-1.030) 04/03/20 13:37 Urine Protein Negative (Negative) 04/03/20 13:37 Urine Glucose (UA) Negative (Negative) 04/03/20 13:37 Urine Ketones Negative (Negative) 04/03/20 13:37 Urine Blood Negative (Negative) 04/03/20 13:37 Urine Nitrite Negative (Negative) 04/03/20 13:37 Urine Bilirubin Negative (Negative) 04/03/20 13:37 Urine Urobilinogen Negative (Negative) 04/03/20 13:37 Ur Leukocyte Esterase Negative (Negative) 04/03/20 13:37 Hepatitis C Ab Screen Neg (Neg) 05/04/20 05:37 Blood Type O Positive 04/03/20 13:37 Antibody Screen NEGATIVE 04/03/20 13:37
[2020-05-05] MEDS: ACETAMINOPHEN 500 MG TAB PO SCH (07:19)
[2020-05-05] MEDS: DOCUSATE SODIUM 100 MG CAP PO SCH (08:52)
[2020-05-05] MEDS: MULTIVITAMIN TAB PO SCH (08:52)
[2020-05-05] MEDS: ASPIRIN 81 MG ECTAB PO SCH (08:53)
--- NOTE | 2020-05-11 09:14 | Anesthesiology Progress Note ---
Date of Service May 11, 2020 Anesthesia Post Procedure Pain Intensity Left Knee: Pain Intensity: 6 Transfer of Care Handoff Completed per policy Notes Mental Status: alert / awake / arousable and participated in evaluation Patient Amnestic to Procedure: Yes Nausea / Vomiting: adequately controlled Pain: adequately controlled Airway Patency, RR, SpO2: stable & adequate BP & HR: stable & adequate Hydration State: stable & adequate Anesthetic Complications: no major complications apparent and Pt Satisfied with anesthetic care Notes: pt seen postop but note placed at a later date.
--- NOTE | 2020-05-11 11:46 | Discharge Summary ---
Date of Service May 11, 2020 Admission HPI Per Admitting Provider Silva is a 59 year old female who complains of left knee pain, presents for pre-op evaluation prior to a left total knee replacement by dr Waggoner at [facility]. she complains of pain, crepitus, decreased range of motion, instability and stiffness in her left knee. she states that the symptoms have been chronic and non-traumatic. she states that the symptoms occur constantly with intermittent worsening. Currently the patient states that the symptoms are moderate-severe. The pain is described as aching, sharp and throbbing. The symptoms occur continuously. The symptoms are aggravated by ascending stairs, daily activities, first steps while awake walking. she has been treated with previous visco injections in the past without much relief. she has also had Pt and sometimes uses a knee brace. she had prior knee arthroscopy without any improvement. Admission Exam Per Admitting Provider Physical Exam: Ht: 5ft 3.5in Wt: 95kg Constitutional: WD/WN, vitals as above no acute distress Respiratory: normal respiratory effort, lungs clear to auscultation no respiratory distress, no labored breathing and does not use accessory muscles Cardiovascular: RRR, no murmur, no edema Gastrointestinal (Abdomen): normal bowel sounds, soft, nontender, no hepatosplenomegaly Musculoskeletal: Knee: + knee abnormal to inspection (Left knee), + effusion (+1 effusion), + surgical incision (well healed portals), + limited ROM of knee (ROM 0/3/110), + knee ROM with crepitation, + joint line tenderness (medial joint line) and + Kenn's sign positive; no deformity, no skin erythema, no ecchymosis, no valgus laxity, no varus laxity, anterior drawer test negative, Ruby's sign negative and pivot shift test negative Principal Diagnosis Left knee DJD Discharge Data Allergies Allergy/AdvReac Type Severity Reaction Status Date / Time diphenhydramine AdvReac Unknown Anxiety Verified 05/03/20 10:21 celecoxib [From Celebrex] AdvReac mouth Verified 05/03/20 10:21 ulcers diclofenac AdvReac mouth Verified 05/03/20 10:21 ulcers tramadol AdvReac itching, Verified 05/03/20 10:21 mouth ulcers Consultations 05/03/20 15:33 Consult Case Management - Discharge Planning Routine Procedures Performed Operation Date: 05/03/20 13:35 Actual Procedures p Left Total Knee Arthroplasty(Left) - Jay Waggoner DO Ordered Studies 05/03/20 05:00 US - OR guided needle placemen Routine Hospital Course (1) Arthritis of knee, left: Patient was admitted on the above-noted date and had the above-noted surgery performed which he tolerated well. On her first postoperative day, she was remaining stable. Pain was controlled. She states that her left foot was numb and she was having difficulty dorsiflexing the foot. She had no other complaints, she denied shortness of breath, chest pain, lightheadedness. Dressings were intact. She did have a foot drop of her left foot most likely d ue to intraoperative injection. Hemovac drainage was minimal. Hemoglobin was 13.4 and white cells were noted to be 18.1. She was started on PT and OT protocols and continued on DVT prophylaxis and pain management. By her second postoperative day, her foot drop had resolved. Dressings were intact. Calves are soft and nontender. Neurovascular is intact. She was progressing with her physical therapy and remaining stable was felt she could be discharged home. Total Time Total Time Spent Total Time Spent (In Minutes): 5 Discharge Plan Discharge Items Patient Disposition: Home - Home Health Services Reason For Visit: Unilateral Primary Osteoarthritis, Left Knee Discharge Diagnosis: Left Knee Osteoarthritis Activity: Per Instructions section Lifting: Wait until after follow-up appointment Weightbearing Comment: as tolerated with walker Non-emergency contact: Surgeon Call non-emergency contact if: your pain is not controlled, your temperature is above 101.5, your wound has increased redness and your wound has increased drainage Follow-up/Referrals: Usha Kuo CRNP [Primary Care Provider] - Diet: Regular Addtl Attending Provider Instructions: ACTIVITY RECOMMENDATIONS: SELF CARE INSTRUCTIONS AFTER TOTAL KNEE REPLACEMENT A. You may need to continue a physical therapy program after discharge from the hospital. There are several options available to you. Your doctor will assist you in selecting the best one for you. 1. An out-patient facility 2 to 3 times a week for therapy or home therapy. 2. Continue working on all exercises taught to you in the hospital. Your goals should be to increase bending of your knee to 90 degrees and beyond and to fully straighten your knee. B. You may progress at your own pace from walking with a walker or crutches to a cane; then to no assistive devices. C. Make walking a part of your daily routine. Be up as much as comfortable with rest periods throughout the day. Rest with leg elevation is very important. Use the ice wrap frequently for the first 3-4 weeks. D. There are no restrictions on activities. You may ride in a car, shop, participate in office support specialist and all social activities. E. Wear the long elastic stockings (JOE hose) 20 hours a day for 2 weeks after surgery. They can be removed several times a day for laundering and for a bath. F. You may shower, no tub baths until cleared by your doctor. SPECIAL CARE INSTRUCTIONS: VERY IMPORTANT TO READ AND REVIEW A. There are a few signs you need to watch for after you are home. Call [facility] if you notice any of the followin. Increased severe knee pain. Some pain is expected especially when you exercise. 2. Increased swelling in your leg or knee; pain or swelling of the calf muscle in either lower leg. 3. Any fluid drainage from the incision. 4. Shortness of breath or chest pain. B. Please call [facility] at if you have any concerns or questions about your operation or recovery. The doctor or his nurse will return your call promptly. C. You must take antibiotics before dental work, bladder, bowel or other surgery. Your doctor will provide you with a permanent care to carry describing this precaution. IMPORTANT: * REMEMBER TO TAKE ASPIRIN, 81 MG, TWICE DAILY FOR 4 WEEKS UNLESS OTHERWISE DIRECTED. THIS IS YOUR BLOOD THINNER. * HIGH RISK PATIENTS MAY BE PRESCRIBED A STRONGER BLOOD THINNER. THIS WILL BE PROVIDED AT DISCHARGE. * CALL IF INCREASED PAIN, REDNESS, DRAINAGE OR FEVER GREATER THAT 101. * WEAR JOE HOSE 20 HOURS PER DAY FOR 2 WEEKS. * DERMABOND Prineo- This is a mesh tape dressing that is covered with glue. It should remain in place until the incision is properly healed, usually 10-14 days. This dressing is designed to naturally slough off. You may trim the excess mesh tape as it peels off. Incision may be briefly wet in a shower. Dry immediately by blotting with a clean, dry towel. Do not bath or swim until instructed by your doctor. Do not scratch, rub, or pick at the dressing. Do not apply any topical ointments or lotions until dressing is completely removed and/or instructed by your doctor. There may be a small piece of suture material at one end of your incision. Do not pull or trim this. If it is bothersome or catching on clothing, you may cover it with a band-aid. Call the office with any questions regarding your dressing. . FOLLOW UP VISIT: If appointment is not already scheduled: Please call [facility] to make a follow-up appointment for 2 weeks after your surgery at . Pending Studies at Discharge: Yes Stand-Alone Forms: My [facility] [employer], Opioid Pain Management, Work/School Release (Inpt), Smoking Cessation Medications and DC Order Prescriptions: New aspirin 81 mg Tablet,Delayed Release (Dr/Ec) 81 mg PO BID 30 Days Qty: 60 RF: 0 docusate sodium 100 mg Capsule 100 mg PO BID 10 Days Qty: 20 RF: 0 cefadroxil 500 mg capsule 500 mg PO BID 10 Days Qty: 20 RF: 0 Continued One Daily Multi-Vit w-Mineral 4.5 mg iron tablet 1 mg PO QAM RF: 0 omeprazole 20 mg capsule,delayed release(DR/EC) 20 mg PO DAILY PRN (Reason: takes with NSAIDS) RF: 0 Probiotic 1 tab PO QAM RF: 0 Discontinued hydrocodone-acetaminophen 5-325 mg tablet 0.5 tab PO Q6H PRN (Reason: Pain) RF: 0 No Action oxycodone 5 mg tablet 5 - 10 mg PO Q6H PRN (Reason: pain) Qty: 8 RF: 0 ibuprofen [Advil] 200 mg tablet 800 mg PO Q6H PRN (Reason: Pain) RF: 0 Discharge Orders: Discharge Order (Routine); Ordered 05/05/20 Ordered By: Josh Potter/Other Patient Handouts: Knee Surg Exercise After, Post-Op Tips: Knee, Knee Replacement Recovery at Home Admission Data Admit Date/Time: 05/03/20 14:43 Attending Provider: Jay Waggoner Admit Provider: Jay Waggoner Primary Care Provider: Usha Kuo Other Providers: [facility],Home Healthcare Other Interventions: Discharge Summary Assessment (RN) Last Done: 05/05/20 12:49
== END 2020-05-05 13:48 | disposition home health service (06) ==
LOC: ASU 10:04 → 3E 10:04

== ENCOUNTER 2020-11-03 10:34 | Inpatient (IN) ==
--- NOTE | 2020-10-20 11:51 | PAT Medication Instructions ---
Medication Instructions Date of Service October 20, 2020 Home Medications Medication Instructions Recorded oxycodone 5 mg tablet 5 - 10 mg PO Q6H PRN #8 tab 05/09/20 duloxetine 20 mg capsule,delayed 20 mg PO DAILY #30 cap 10/03/20 release omeprazole 20 mg capsule,delayed 20 mg PO DAILY PRN #30 cap 10/03/20 release multivitamin with ferrous sulfate 4.5 mg iron tablet 1 mg PO QAM oxycodone 5 mg tablet 5 - 10 mg PO Q6H PRN ibuprofen 200 mg tablet 400 mg PO Q6H PRN duloxetine 20 mg capsule,delayed release 20 mg PO DAILY omeprazole 20 mg capsule,delayed release 20 mg PO DAILY PRN Lactobacillus acidophilus [Probiotic] 10,000 mmu cells PO QAM ASK your surgeon for instructions ibuprofen 200 mg tablet 400 mg PO Q6H PRN DO NOT take the morning of surgery multivitamin with ferrous sulfate 4.5 mg iron tablet 1 mg PO QAM Lactobacillus acidophilus [Probiotic] 10,000 mmu cells PO QAM Take morning of surgery With a small sip of water, OTHERWISE NOTHING TO EAT OR DRINK AFTER MIDNIGHT: oxycodone 5 mg tablet 5 - 10 mg PO Q6H PRN (if needed, may be taken up to four hours before surgery) duloxetine 20 mg capsule,delayed release 20 mg PO DAILY omeprazole 20 mg capsule,delayed release 20 mg PO DAILY PRN (if needed) Take evening before surgery oxycodone 5 mg tablet 5 - 10 mg PO Q6H PRN (if needed) omeprazole 20 mg capsule,delayed release 20 mg PO DAILY PRN (if needed) Other Notes If you have any questions please call us at [phone] or [phone] or [phone] or [phone]
--- NOTE | 2020-10-23 13:34 | Anesthesiology Consultation ---
Date of Service October 23, 2020 Assessment & Plan (1) Encounter for pre-operative examination: COVID Status: As of 10/23 assessment, patient denies travel to endemic area, known exposure/sick contacts, or symptoms of COVID19. Patient instructed that they and their household members must follow strict social distancing guidelines, wear a mask in public and avoid travel/events/gatherings for 14 days prior to surgery. Preoperative COVID19 testing to be completed 10/23 at [facility]. Giorgio barbour made aware to self-isolate as much as possible between COVID testing and surgery. Chart Review Chart Review: Acceptable Risk for Surgery and Patient seen in Pre Admission Testing Teaching & Discussion Instructed NPO after midnight before surgery, except medications with 15 cc of water. Medication instructions provided according to the PAT guidelines. History Surgery Operation Date: 10/30/20 12:25 Proposed Procedures p L4-S1 Decompression and Fusion, Spinal Cord Monitoring - Zbigniew Chiang, Height/Weight Height: 5 ft 3.5 in Weight: 94.7 kg Allergies Allergy/AdvReac Type Severity Reaction Status Date / Time celecoxib [From Celebrex] AdvReac Intermediate mouth Verified 10/20/20 11:36 ulcers diclofenac AdvReac Intermediate mouth Verified 10/20/20 11:36 ulcers diphenhydramine AdvReac Intermediate HYPER Verified 10/20/20 11:36 tramadol AdvReac Intermediate itching, Verified 10/20/20 11:36 mouth ulcers Medications Home Medications Medication Instructions Recorded Confirmed Last Taken multivitamin with minerals-ferrous 1 mg PO QAM tab 04/29/19 10/20/20 05/02/20 12:00 sulfate 4.5 mg iron tablet oxycodone 5 mg tablet 5 - 10 mg PO Q6H PRN #8 tab 05/09/20 10/20/20 Unknown ibuprofen 200 mg tablet 400 mg PO Q6H PRN tab 05/10/20 10/20/20 Unknown duloxetine 20 mg capsule,delayed 20 mg PO DAILY #30 cap 10/03/20 10/20/20 Unknown release omeprazole 20 mg capsule,delayed 20 mg PO DAILY PRN #30 cap 10/03/20 10/20/20 Unknown release Lactobacillus acidophilus 10,000 mmu cells PO QAM 10/20/20 10/20/20 Unknown [Probiotic] Past Medical History Medical History (Updated 10/23/20 @ 15:18 by Piyush Roth) Bulging lumbar disc Chronic back pain GERD (gastroesophageal reflux disease) only takes omeprazole with NSAIDS PRN History of nephrolithiasis Osteoarthritis Exercise / Class Metabolic Activity II 4-5 Yardwork/Stairs/Walk up hill (Denies CP or SOB with 1 FOS, limited by knee pain) Past Family History Family History (Updated 10/20/20 @ 11:40 by Candy Rocha RN) Aunt Breast cancer maternal Mother Liver cancer Malignant neoplasm of gallbladder Diabetes Father Diabetes Other No family history of adverse response to anesthesia Denies family history of Ovarian cancer Prostate cancer Colorectal cancer Past Surgical History Surgical History History of arthroscopy of left knee History of breast biopsy BENIGN History of carpal tunnel release BL History of colonoscopy History of lithotripsy History of tooth extraction History of total knee replacement LEFT Trigger finger right and left hand Past Anesthesia History No Hx of Anesthesia Complications and No Family Hx of Anesthesia Complications History of PONV No Hx of PONV and No Hx of Motion Sickness Social History Smoking Status: Never smoker Do You Dip or Chew Tobacco: No Hx Alcohol Use: No substance use type: does not use Review of Systems Pt denies any recent chest pain, shortness of breath, palpitations, cough, fever, URI, or uncontrolled acid reflux. Physical Exam Vital Signs BP: 113/71 P: 83bpm SPO2: 96% RA T: 98.1 F R: 16 ENMT Mouth: no dental restorations, no chipped teeth and no loose teeth Thyromental Distance: > or= 3.5 Finger Breadths Mallampati Class: III Neck neck extension not limited Respiratory normal respiratory effort, lungs clear to auscultation Cardiovascular RRR, no murmur, no edema Testing Laboratory Results 10/23/20 13:21 10/23/20 13:21 PT 10.1 Seconds (9.0-12.0) 10/23/20 13: INR 1.0 (0.9-1.1) 10/23/20 13:21 APTT 28.5 Seconds (21.0-31.0) 10/23/20 13:21 Electrocardiogram Date: 04/03/20 Findings: + NSR @ (82bpm with sinus arrhythmia) No significant change from 12/2018. Chest X-Ray Date: 04/03/20 Findings: + NAD
[2020-10-23 13:57] LABS: Basophils # (auto) 0.01 K/uL (0-0.2); Basophils % (auto) 0.1 %; Eosinophils # (auto) 0.07 K/uL (0-0.5); Eosinophils % (auto) 0.9 %; Hematocrit (blood only) 43.1 % (37-47); Hemoglobin 14.1 g/dL (12.0-16.0); Immature Granulocytes # (auto) 0.01 K/uL (0.00-0.02); Immature Granulocytes % (auto) 0.1 %; Lymphocytes # (auto) 1.46 K/uL (1.2-3.4); Lymphocytes % (auto) 19.3 %; Mean Corpuscular Hemoglobin 27.8 pg (25-34); Mean Corpuscular Hgb Conc 32.7 g/dL (32-36); Mean Platelet Volume 9.9 fL (7.4-10.4); Monocytes # (auto) 0.62 K/uL (0.11-0.59); Monocytes % (auto) 8.2 %; Neutrophils % (auto) 71.4 %; Platelet Count 298 K/uL (130-400); RDW Coefficient of Variation 14.5 % (11.5-14.5); RDW Standard Deviation 45.2 fL (36.4-46.3); Red Blood Count 5.07 M/uL (4.2-5.4); White Blood Count 7.57 K/uL (4.8-10.8)
[2020-10-23 14:14] LABS: Partial Thromboplastin Ratio 1.1; Partial Thromboplastin Time 28.5 Seconds (21.0-31.0); Prothrombin Time 10.1 Seconds (9.0-12.0)
[2020-10-23 15:14] LABS: BUN Creatinine Ratio 16.9 (10-20); Calcium 9.3 mg/dl (8.5-10.1); Creatinine Clr Calc Pharmacy 94.3 ml/min; Est GFR (African American) 108.1; Est GFR (Non-African American) 93.2; Potassium 4.5 mmol/L (3.5-5.1)
[~2020-11-03 10:34] MED LIST changes: -BUPIVACAINE 0.25% 30 ML VIAL ONE; -BUPIVACAINE 0.5 % 5 MG/1 ML PF 10ML VIAL ONE; -CEFAZOLIN 2000MG 2,000 MG/15 ML SYR IV SCH; +CeleBREX 200 MG CAP PO SCH; -FAMOTIDINE 20 MG TAB PO SCH; +LR 15ML/HR IV SCH; -LR 500ML BOLUS, THEN 15ML/HR IV SCH; -METOCLOPRAMIDE HCL 10 MG TABLET PO SCH; -ROPIVACAINE 0.5% HCL/PF 150 MG, BUPIVACAINE 0.5% MPF 30 ML, EPINEPHrine 30MG/30ML (OR U... INSTIL SCH; -TRANEXAMIC ACID 1,000 MG **IV Intra-op IV SCH; -TRANEXAMIC ACID 1,000 MG **IV Pre-op IV SCH; +[UNRECOGNIZED DRUG - REMARK] SCH; +ceFAZolin 2000MG 2,000 MG/15 ML SYR IV SCH; -dexAMETHasone 4 MG TAB PO SCH
[2020-11-03] MEDS ORDERED: MIDAZOLAM HCL 1 MG/ML 2ML VIAL ONE (11:25)
[2020-11-03] MEDS ORDERED: fentaNYL citrate 100 MCG/2 ML VIAL ONE (11:25)
[2020-11-03] MEDS ORDERED: PROPOFOL IV EMULSION 10 MG/ML 20 ML VIAL IV ONE (11:25)
[2020-11-03] MEDS ORDERED: LIDOCAINE HCL 2% 2 ML VIAL/AMP(20MG/ML) INFIL ONE (11:25)
[2020-11-03] MEDS ORDERED: DEXAMETHASONE SOD INJ 4 MG/ML VIAL ONE (11:25)
[2020-11-03] MEDS ORDERED: GLYCOPYRROLATE 0.2 MG/ML VIAL ONE ×2 (11:25→14:24)
[2020-11-03] MEDS ORDERED: NEOSTIGMINE METHYLSULFATE 1 MG/ML 10ML VIAL ONE (11:25)
[2020-11-03] MEDS ORDERED: ONDANSETRON INJ 2 MG/ML 2 ML VIAL ONE ×2 (11:25→14:10)
[2020-11-03] MEDS ORDERED: LARYING-O-JET KIT (LTA) ONE (11:45)
[2020-11-03] MEDS: LR 15ML/HR IV SCH ×2 (11:45→11:46)
[2020-11-03] MEDS ORDERED: fentaNYL citrate 100 MCG/2 ML VIAL IV PRN (12:17)
[2020-11-03] MEDS ORDERED: PROMETHAZINE HCL 12.5 MG in SODIUM CHLORIDE 0.9% 50 ML IV PRN ×2 (12:17→17:02)
[2020-11-03] MEDS ORDERED: ePHEDrine sulfate 50 MG/ML AMP IV PRN (12:17)
[2020-11-03] MEDS ORDERED: ATROPINE SULFATE 0.1 MG/ML 10ML SYR IV PRN (12:17)
[2020-11-03] MEDS ORDERED: LABETALOL HCL IV 5 MG/ML 20ML IV PRN (12:17)
[2020-11-03] MEDS ORDERED: ONDANSETRON INJ 2 MG/ML 2 ML VIAL IV PRN ×2 (12:17→17:02)
[2020-11-03] MEDS ORDERED: NALOXONE HCL 0.4 MG/1 ML VIAL/CARP IV PRN ×2 (12:17→17:02)
[2020-11-03] MEDS ORDERED: FLUMAZENIL 0.1 MG/1 ML 10 ML VIAL IV PRN (12:17)
--- NOTE | 2020-11-03 12:30 | History & Physical Bridge Note ---
Date of Service November 03, 2020 History & Physical Bridge Note I have examined the patient, reviewed the History & Physical and in the interval since the performance of the History & Physical I have noted the following changes of clinical significance: no changes noted
--- NOTE | 2020-11-03 12:31 | History & Physical Report ---
Date of Service November 03, 2020 Assessment & Plan (1) Neurogenic claudication due to lumbar spinal stenosis: Admission and Anticipated Discharge Date Admission Date: L4-S1 decompression fusion History of Present Illness Chief Complaint: Back and leg pain Primary Care Provider: MELL Ferraro This is a 60-year-old female who presents with chronic persistent back and leg pain. Failing course of nonoperative care she is here for surgical invention. Allergies Allergy/AdvReac Type Severity Reaction Status Date / Time celecoxib [From Celebrex] AdvReac Intermediate mouth Verified 11/03/20 11:12 ulcers diclofenac AdvReac Intermediate mouth Verified 11/03/20 11:12 ulcers diphenhydramine AdvReac Intermediate HYPER Verified 11/03/20 11:12 tramadol AdvReac Intermediate itching, Verified 11/03/20 11:12 mouth ulcers Home Medications Medication Instructions Recorded Confirmed Type multivitamin with minerals-ferrous 1 mg PO QAM tab 04/29/19 11/03/20 History sulfate 4.5 mg iron tablet oxycodone 5 mg tablet 5 - 10 mg PO Q6H PRN #8 tab 05/09/20 11/03/20 Rx ibuprofen 200 mg tablet 400 mg PO Q6H PRN tab 05/10/20 11/03/20 History duloxetine 20 mg capsule,delayed 20 mg PO DAILY #30 cap 10/03/20 11/03/20 Rx release omeprazole 20 mg capsule,delayed 20 mg PO DAILY PRN #30 cap 10/03/20 11/03/20 Rx release Lactobacillus acidophilus 10,000 mmu cells PO QAM 10/20/20 11/03/20 History [Probiotic] methocarbamol 750 mg tablet 750 mg PO TID #60 tab 10/24/20 11/03/20 Rx Tylenol Extra Strength 2 tab PO BID PRN 11/03/20 11/03/20 History Past Med/Surg History Medical History Bulging lumbar disc Chronic back pain GERD (gastroesophageal reflux disease) History of nephrolithiasis Osteoarthritis Surgical History History of arthroscopy of left knee History of breast biopsy History of carpal tunnel release History of colonoscopy History of lithotripsy History of tooth extraction History of total knee replacement Trigger finger Family History Aunt Breast cancer Mother Liver cancer Malignant neoplasm of gallbladder Diabetes Father Diabetes Other No family history of adverse response to anesthesia Denies family history of Ovarian cancer Prostate cancer Colorectal cancer Social History Smoking Status: Never smoker Second Hand Exposure: No; Do You Dip or Chew Tobacco: No; Hx Alcohol Use: No Hx Substance Use: No Preferred Language: Portuguese Communication Ability: Effective Fork Repairer Required: No Beliefs That Will Affect Care: None marital status: Current Living Situation: Spouse current occupational status: employed Feels Safe at Home: Yes Safety Concerns: Feels Safe At This Time Physical Activity Frequency: 5-6 Times per Week Assistive Devices: Crutches and Walker Physical Exam Physical Exam: Patient is alert and oriented Heart regular rhythm Lungs clear to auscultation Results & Data ([facility]) Vital Signs (Past 12 Hours) Vital Signs Temp Pulse Resp BP Pulse Ox 11/03/20 11:21 36.9 C 86 20 147/64 H 96
[2020-11-03] MEDS ORDERED: BUPIVACAINE/EPINEPHRINE 0.5% MPF 1:200,000 30 ML VIAL ONE (13:01)
[2020-11-03] MEDS ORDERED: BACITRACIN INJ 50,000 UNIT VIAL ONE (13:01)
[2020-11-03 13:31] LABS: Appearance Urine Clear (Clear); Bilirubin Urine Negative (Negative); Blood Urine Negative (Negative); Color Urine Yellow; Glucose Urine UA Negative (Negative); Ketones Urine 1+ (Negative); Leukocyte Esterase Urine Negative (Negative); Nitrite Urine Negative (Negative); Protein Urine Negative (Negative); Specific Gravity Urine 1.007 (1.000-1.030); Urobilinogen Urine Negative (Negative)
[2020-11-03] MEDS ORDERED: PHENYLEPHRINE 100MCG/ML 5ML SYR ONE (14:16)
[2020-11-03] MEDS ORDERED: ePHEDrine sulfate 50 MG/ML AMP ONE (14:16)
[2020-11-03] MEDS ORDERED: FLOSEAL HEMOSTATIC MATRIX 10ML TOP ONE (14:55)
[2020-11-03] MEDS ORDERED: ROCURONIUM BROMIDE 10 MG/ML 5 ML VIAL IV ONE (14:56)
--- NOTE | 2020-11-03 15:02 | Operative Report ---
Post Operative Report Pre & Post Diagnosis Operation Date: 11/03/20 12:15 Pre-Op Diagnosis: Spinal Stenosis, Lumbar Region with Neurogenic Cla Post-Op Diagnosis: Spinal Stenosis, Lumbar Region with Neurogenic Cla I identified the patient and participated in the time-out.: Yes Procedure Operation Date: 11/03/20 12:15 Actual Procedures #1 lumbar decompression with bilateral medial facetectomies and foraminotomies L3-4, L4-5 and L5-S1. #2 posterior spinal fusion L4-5 L5-S1. #3 placement posterior instrumentation L4-5 L5-S1. #4 interbody fusion L4-5. #5 placement peek cage 12 x 22 mm at L4-5 per #6 placement locally harvested morselized autograft and posterior gutters. #7 placement infuse collagen sponge, master graft in the posterior lateral gutters and ostial amp interbody space. Surgeon Zbigniew Chiang, Public Works Laborer Joss Hernandez Estimated Blood Loss 100 Findings See Below Patient is 5 foot 3 inches tall weighing over 92 kg with a BMI in excess of 35. The patient's body habitus did create significant technical difficulty requiring her deepest retractors longus instruments in order to perform her procedure. This had at least 50% increase to the operative time. Specimens None Indications This is a 60-year-old female who presents with above-mentioned diagnosis after failing course of nonoperative care is here for surgical invention. Description of Procedure Patient was met with identified informed consent obtained. Patient was then taken to the operative suite underwent intubation placed in the prone position the Flaco table top Theo frame. All bony prominences well-padded eyes inspected to ensure no external pressure placed upon up at this point the lumbar spine was prepped and draped in a sterile fashion. Sharp dissection with the assistance of Bovie cautery was performed down to and exposing the lamina and tr ansverse processes of L for L5 and the sacral ala bilaterally. From caudal to cephalad fashion complete laminectomy of L5 L4 and partial laminectomy of L3 was performed including bilateral medial facetectomies and foraminotomies addressing severe spinal stenosis. Pedicle screws were then placed in L4-L5 and S1 levels bilaterally with assistance of fluoroscopy and the proper sized teresa placed. By way of a transforamen approach on the left complete discectomy was performed endplates curetted to subcortical being bone and a 12 x 22 mm peek cage filled with osteobone graft tapped in position. The rods were then locked into final position bilaterally. Transverse processes of L4-L5 and the sacral ala burred to subcortical bleeding bone. Infuse collagen sponge master graft local autograft was placed in the posterior lateral gutters. 15 round VALERIANO drain inserted. The incision was then closed with 1 Vicryl in the fascia 2-0 Vicryl subcutaneously and 4 Monocryl for final skin closure. Steri-Strip sterile dressing was placed. Patient will continue PACU stable condition. Please note spinal cord monitoring was utilized at the procedure no changes noted. Lastly Joss Hernandez was present at the entire procedure about the patient positioning complex portions of the surgery and final skin closure. I attest to the content of the Intraoperative Record and any orders documented therein. Any exceptions are noted below.
--- NOTE | 2020-11-03 15:07 | Fluoroscopy Report ---
FL lumbar spine 2-3V HISTORY: 60 years-old Female L4-S1 DECOMPRESSION AND FUSION chronic low back pain COMPARISON: Lumbar spine MRI 09/25/2020 TECHNIQUE: 2 spot. Images of the lumbar spine were obtained utilizing 30.0 seconds fluoroscopy time FINDINGS: Posterior decompression and with posterior interbody teresa and screw fusion is noted at L4-S1 with disc ectomy changes at L4-L5. Hardware appears intact. Alignment appears satisfactory. There is an opaque sponge overlying the sacrum on the lateral view, not seen on the frontal projection. IMPRESSION: Fluoroscopic assistance as above. ACT 112: Negative or not required by law. The above report was generated using voice recognition software. It may contain grammatical, syntax o r spelling errors. Electronically signed by: Jair Canales M.D. 11/03/2020 3:06 PM
[2020-11-03] MEDS: HYDROmorphone INJ 1 MG/ML SYRINGE IV PRN ×8 (15:35→16:10)
[2020-11-03] MEDS ORDERED: KETOROLAC 30 MG/ML VIAL ONE (16:09)
--- NOTE | 2020-11-03 16:59 | Anesthesiology Progress Note ---
Date of Service November 03, 2020 Anesthesia Post Procedure Vital Signs Vital Signs: Temp Pulse Pulse Resp BP BP Pulse Ox 11/03/20 16:25 36.6 C 74 16 139/61 100 11/03/20 16:15 78 16 134/79 100 11/03/20 16:05 66 16 139/57 L 100 11/03/20 15:55 87 16 122/69 100 11/03/20 15:45 82 16 142/82 H 100 11/03/20 15:35 101 H 16 154/84 H 100 11/03/20 15:25 36.3 C L 110 H 16 141/73 H 100 11/03/20 11:21 36.9 C 86 20 147/64 H 96 Pain Intensity Left Leg: Pain Intensity: 4 Transfer of Care Handoff Completed per policy Notes Mental Status: alert / awake / arousable Patient Amnestic to Procedure: Yes Nausea / Vomiting: adequately controlled Pain: adequately controlled Airway Patency, RR, SpO2: stable & adequate BP & HR: stable & adequate Hydration State: stable & adequate Anesthetic Complications: no major complications apparent
[2020-11-03] MEDS ORDERED: hydrOXYzine HCl 25 MG TAB PO PRN (17:02)
[2020-11-03] MEDS ORDERED: DO NOT ADMINISTER FLU VACCINE PRN (17:02)
[2020-11-03] MEDS ORDERED: ACETAMINOPHEN 1,000 MG/100 ML VIAL IV PRN (17:02)
[2020-11-03] MEDS ORDERED: METOCLOPRAMIDE HCL INJ 5 MG/ML 2 ML VIAL IV PRN (17:02)
[2020-11-03] MEDS ORDERED: FAMOTIDINE 20 MG TAB PO PRN (17:02)
[2020-11-03] MEDS ORDERED: ACETAMINOPHEN 500 MG TAB PO PRN (17:02)
[2020-11-03] MEDS ORDERED: diphenhydrAMINE Capsule 25 MG CAP PO PRN (17:02)
[2020-11-03] MEDS ORDERED: LORazepam 0.5 MG/1 ML VIAL IV PRN (17:02)
[2020-11-03] MEDS ORDERED: TYLENOL EXTRA STRENGTH 500 MG PO PRN (17:02)
[2020-11-03] MEDS ORDERED: HYDROmorphone INJ 1 MG/ML SYRINGE IV PRN (17:02)
[2020-11-03] MEDS ORDERED: ALUMINUM/MAGNESIUM SUSP 30 ML UDC PO PRN (17:02)
[2020-11-03] MEDS ORDERED: DO NOT ADMINISTER PNEUMOCOCCAL VACCINE PRN (17:02)
[2020-11-03] MEDS ORDERED: IBUPROFEN 200 MG TAB PO PRN (17:02)
[2020-11-03] MEDS ORDERED: SOD PHOSPHATE/SOD BIPHOSPHATE ENEMA 132 ML BTL PR PRN (17:02)
[2020-11-03] MEDS ORDERED: LORazepam 0.5 MG TAB PO PRN (17:02)
[2020-11-03] MEDS ORDERED: HYDROmorphone INJ 0.5 MG/0.5 ML SYR IV PRN (17:02)
[2020-11-03] MEDS ORDERED: ONDANSETRON 4 MG OD TAB PO PRN (17:02)
[2020-11-03] MEDS ORDERED: PANTOprazole 40 MG TAB PO PRN (17:08)
--- NOTE | 2020-11-03 17:57 | Hospitalist Consultation ---
Date of Consultation November 03, 2020 Assessment & Plan (1) Neurogenic claudication due to lumbar spinal stenosis: S/p L3-S1 lumbar decompression and fusion with Dr. Chiang on 11/03/2020. - Post-op care per primary team - DVT ppx per primary team (2) Chronic pain: - Continue duloxetine - Continue methocarbamol - Monitor for respiratory depression with post-op opioids (3) Chronic GERD: - Continue home PPI (4) DVT prophylaxis: SCDs - Chemoprophylaxis per primary team History of Present Illness Attending Physician: Zbigniew Chiang, History of Present Illness 60yo F w/ hx of spinal stenosis who presents as a post-op consult after L3-S1 lumbar decompression and fusion with Dr. Chiang on 11/03/2020. On the time of my interview, she reports she feels her back is "tight" which is being improved by the pain medication she received. Allergies Allergy/AdvReac Type Severity Reaction Status Date / Time celecoxib [From Celebrex] AdvReac Intermediate mouth Verified 11/03/20 11:12 ulcers diclofenac AdvReac Intermediate mouth Verified 11/03/20 11:12 ulcers diphenhydramine AdvReac Intermediate HYPER Verified 11/03/20 11:12 tramadol AdvReac Intermediate itching, Verified 11/03/20 11:12 mouth ulcers Home Medications Medication Instructions Recorded Confirmed Type multivitamin with minerals-ferrous 1 mg PO QAM tab 04/29/19 11/03/20 History sulfate 4.5 mg iron tablet oxycodone 5 mg tablet 5 - 10 mg PO Q6H PRN #8 tab 05/09/20 11/03/20 Rx ibuprofen 200 mg tablet 400 mg PO Q6H PRN tab 05/10/20 11/03/20 History duloxetine 20 mg capsule,delayed 20 mg PO DAILY #30 cap 10/03/20 11/03/20 Rx release omeprazole 20 mg capsule,delayed 20 mg PO DAILY PRN #30 cap 10/03/20 11/03/20 Rx release Lactobacillus acidophilus 10,000 mmu cells PO QAM 10/20/20 11/03/20 History [Probiotic] methocarbamol 750 mg tablet 750 mg PO TID #60 tab 10/24/20 11/03/20 Rx Tylenol Extra Strength 2 tab PO BID PRN 11/03/20 11/03/20 History oxycodone 5 mg PO Q6H PRN #30 tab 11/04/20 Rx tramadol 50 mg PO Q6H PRN #30 tab 11/04/20 Rx Patient History Medical History Bulging lumbar disc Chronic back pain GERD (gastroesophageal reflux disease) only takes omeprazole with NSAIDS PRN History of nephrolithiasis Osteoarthritis Surgical History History of arthroscopy of left knee History of breast biopsy BENIGN History of carpal tunnel release BL History of colonoscopy History of lithotripsy History of tooth extraction History of total knee replacement LEFT Trigger finger right and left hand Family History Aunt Breast cancer maternal Mother Liver cancer Malignant neoplasm of gallbladder Diabetes Father Diabetes Other No family history of adverse response to anesthesia Denies family history of Ovarian cancer Prostate cancer Colorectal cancer Social History Smoking Status: Never smoker Second Hand Exposure: No; Do You Dip or Chew Tobacco: No; Hx Alcohol Use: No Hx Substance Use: No Preferred Language: Kyrgyz Communication Ability: Effective Musician Instrumental Required: No Beliefs That Will Affect Care: None marital status: Current Living Situation: Spouse current occupational status: employed Feels Safe at Home: Yes Safety Concerns: Feels Safe At This Time Physical Activity Frequency: 5-6 Times per Week Assistive Devices: Walker Review of Systems Review of Systems: All systems reviewed & are unremarkable except as noted in HPI & below Physical Exam Constitutional: WD/WN, vitals as above Eyes: EOM intact bilaterally; no conjunctival abnormality ENMT: external ear and nose normal, oropharynx normal Neck: trachea midline, no thyromegaly normal visual inspection Respiratory: normal respiratory effort, lungs clear to auscultation no respiratory distress Cardiovascular: RRR, no murmur, no edema Gastrointestinal (Abdomen): Inspection/Auscultation: abdomen normal to inspection; abdomen not distended Musculoskeletal: no cyanosis or clubbing, extremities motor strength 5/5 Skin: no rashes, warm and dry Neurologic: moves all extremities and awake Psychiatric: Orientation: alert, oriented to person and cooperative Results & Data Results & Data ([facility]) Vital Signs (Past 12 Hours) Vital Signs Temp Pulse Pulse Resp BP BP Pulse Ox 11/03/20 17:48 36.3 C L 96 H 16 109/65 98 11/03/20 17:15 36.4 C L 95 H 16 144/78 H 99 11/03/20 16:45 36.4 C L 94 H 18 113/74 99 11/03/20 16:25 36.6 C 74 16 139/61 100 11/03/20 16:15 78 16 134/79 100 11/03/20 16:05 66 16 139/57 L 100 11/03/20 15:55 87 16 122/69 100 11/03/20 15:45 82 16 142/82 H 100 11/03/20 15:35 101 H 16 154/84 H 100 11/03/20 15:25 36.3 C L 110 H 16 141/73 H 100 11/03/20 11:21 36.9 C 86 20 147/64 H 96 PG Care Time/CCT Total # of Minutes Spent Total Time Spent with Patient: Total time spent is greater than 50% in coordination of care (as documented) at patient's floor/unit and/or counseling patient: Coding Level of Care Code 07669 Inpt Consult Level 3 Diagnoses Neurogenic claudication due to lumbar spinal stenosis M48.062 Chronic pain G89.29 Chronic GERD K21.9 DVT prophylaxis Z29.9
[2020-11-03] MEDS: LACTATED RINGER'S 1,000 ML IV SCH (18:15)
[2020-11-03] MEDS: METHOCARBAMOL 750 MG TABLET PO SCH (21:31)
[2020-11-03] MEDS: DOCUSATE SODIUM/SENNA 50/8.6MG TAB PO SCH (21:32)
[2020-11-03] MEDS: KETOROLAC TROMETHAMINE 15 MG/ML VIAL IV SCH (21:33)
[2020-11-03] MEDS: ceFAZolin 2000MG 2,000 MG/15 ML SYR IV SCH (21:33)
[2020-11-03] MEDS: oxyCODONE HCL IR 5 MG TAB (IMMEDIATE RELEASE) PO PRN (21:54)
[2020-11-04] MEDS: oxyCODONE HCL IR 5 MG TAB (IMMEDIATE RELEASE) PO PRN ×4 (02:50→20:22)
[2020-11-04] MEDS: KETOROLAC TROMETHAMINE 15 MG/ML VIAL IV SCH ×3 (04:56→16:20)
[2020-11-04] MEDS: ceFAZolin 2000MG 2,000 MG/15 ML SYR IV SCH (04:57)
[2020-11-04] MEDS: POLYETHYLENE (MIRALAX) 17 GM PACK PO SCH ×4 (05:04→22:42)
[2020-11-04] MEDS: LACTATED RINGER'S 1,000 ML IV SCH (05:14)
[2020-11-04 06:20] LABS: Hematocrit (blood only) 35.5 % (37-47); Hemoglobin 11.8 g/dL (12.0-16.0); Immature Granulocytes # (auto) 0.07 K/uL (0.00-0.02); Immature Granulocytes % (auto) 0.5 %; Lymphocytes # (auto) 0.83 K/uL (1.2-3.4); Lymphocytes % (auto) 5.4 %; Mean Corpuscular Hemoglobin 28.2 pg (25-34); Mean Corpuscular Hgb Conc 33.2 g/dL (32-36); Mean Corpuscular Volume 84.7 fL (80-100); Mean Platelet Volume 9.6 fL (7.4-10.4); Monocytes # (auto) 1.19 K/uL (0.11-0.59); Monocytes % (auto) 7.7 %; Neutrophils # (auto) 13.42 K/uL (1.4-6.5); Neutrophils % (auto) 86.4 %; Platelet Count 250 K/uL (130-400); RDW Coefficient of Variation 14.1 % (11.5-14.5); RDW Standard Deviation 43.7 fL (36.4-46.3); Red Blood Count 4.19 M/uL (4.2-5.4); White Blood Count 15.51 K/uL (4.8-10.8)
[2020-11-04 06:53] LABS: BUN Creatinine Ratio 11.2 (10-20); Creatinine Clr Calc Pharmacy 94.5 ml/min; Est GFR (African American) 109.9; Est GFR (Non-African American) 94.8; Potassium 4.1 mmol/L (3.5-5.1)
[2020-11-04] MEDS: CEROVITE ADV FORMULA TAB PO SCH (08:22)
[2020-11-04] MEDS: METHOCARBAMOL 750 MG TABLET PO SCH ×3 (08:22→20:23)
[2020-11-04] MEDS: ADVANCED PROBIOTIC 1250 MG CAPSULE PO SCH (08:22)
[2020-11-04] MEDS: DULoxetine HCL 20 MG CAP PO SCH (08:22)
--- NOTE | 2020-11-04 08:44 | Orthopedic Progress Note ---
Date of Service November 04, 2020 Assessment & Plan (1) Neurogenic claudication due to lumbar spinal stenosis: Admission and Anticipated Discharge Date Admission Date: November 03, 2020 This time continue physical therapy monitor VALERIANO output hopefully discharge home in the next few days. Subjective Back pain controlled leg pain improved. Physical Exam Physical Exam: On exam patient is in a chair at the bedside. She is good strength testing. Results & Data ([facility]) Vital Signs (Past 12 Hours) Vital Signs Temp Pulse Resp BP Pulse Ox 11/04/20 07:51 36.7 C 71 16 103/58 L 92 11/04/20 01:54 36.9 C 88 18 128/65 93 11/03/20 21:46 36.4 C L 97 H 18 136/69 95 11/03/20 21:21 98
[2020-11-04] MEDS: dexAMETHasone 8 MG in SYRINGE 0 ML IV SCH (09:24)
--- NOTE | 2020-11-04 17:06 | Hospitalist Progress Note ---
Date of Service November 04, 2020 Assessment & Plan (1) Neurogenic claudication due to lumbar spinal stenosis: S/p L3-S1 lumbar decompression and fusion with Dr. Chiang on 11/03/2020. - Post-op care per primary team - DVT ppx per primary team - Pain very controlled today. Now has fairly expected acute blood loss anemia. Will give IV iron x 3 doses. (2) Chronic pain: - Continue duloxetine - Continue methocarbamol - Monitor for respiratory depression with post-op opioids -> None today. (3) Chronic GERD: - Continue home PPI (4) DVT prophylaxis: SCDs - Chemoprophylaxis per primary team Given medical stability, Hospital Medicine team will sign off. Please re-consult with any questions or concerns. Thank you for letting us assist in the care of this patient! Admission and Anticipated Discharge Date Admission Date: November 03, 2020 Subjective Doing well today. Less back pain. Reports no fevers/chills, chest pain, shortness of breath, abdominal pain, nausea, or vomiting. Physical Exam Constitutional: WD/WN, vitals as above Eyes: EOM intact bilaterally; no conjunctival abnormality ENMT: external ear and nose normal, oropharynx normal Neck: trachea midline, no thyromegaly normal visual inspection Respiratory: normal respiratory effort, lungs clear to auscultation no respiratory distress Cardiovascular: RRR, no murmur, no edema Gastrointestinal (Abdomen): Inspection/Auscultation: abdomen normal to inspection; abdomen not distended Musculoskeletal: no cyanosis or clubbing, extremities motor strength 5/5 Skin: no rashes, warm and dry Neurologic: moves all extremities and awake Psychiatric: Orientation: alert, oriented to person and cooperative Results & Data Results & Data ([facility]) Vital Signs (Past 12 Hours) Vital Signs Temp Pulse Resp BP Pulse Ox 11/04/20 15:43 36.8 C 99 H 16 113/71 93 11/04/20 07:51 36.7 C 71 16 103/58 L 92 PG Care Time/CCT Total # of Minutes Spent Total Time Spent with Patient: Total time spent is greater than 50% in coordi nation of care (as documented) at patient's floor/unit and/or counseling patient: Coding Level of Care Code 83399 Subseq Hosp Care Lvl 2 Diagnoses Neurogenic claudication due to lumbar spinal stenosis M48.062 Chronic pain G89.29 Chronic GERD K21.9 DVT prophylaxis Z29.9
[2020-11-04] MEDS: IRON SUCROSE 200 MG in 0.9 % SODIUM CHLORIDE 100 ML IV SCH (18:27)
[2020-11-04] MEDS: DOCUSATE SODIUM/SENNA 50/8.6MG TAB PO SCH (20:23)
[2020-11-05] MEDS: oxyCODONE HCL IR 5 MG TAB (IMMEDIATE RELEASE) PO PRN ×3 (00:48→12:02)
[2020-11-05] MEDS: POLYETHYLENE (MIRALAX) 17 GM PACK PO SCH ×4 (04:56→23:59)
[2020-11-05] MEDS: ADVANCED PROBIOTIC 1250 MG CAPSULE PO SCH (08:20)
[2020-11-05] MEDS: METHOCARBAMOL 750 MG TABLET PO SCH ×3 (08:20→21:10)
[2020-11-05] MEDS: dexAMETHasone 8 MG in SYRINGE 0 ML IV SCH (08:21)
[2020-11-05] MEDS: DULoxetine HCL 20 MG CAP PO SCH (08:21)
[2020-11-05] MEDS: CEROVITE ADV FORMULA TAB PO SCH (08:21)
[2020-11-05] MEDS: IRON SUCROSE 200 MG in 0.9 % SODIUM CHLORIDE 100 ML IV SCH (09:56)
--- NOTE | 2020-11-05 10:48 | Orthopedic Progress Note ---
Date of Service November 05, 2020 Assessment & Plan (1) Neurogenic claudication due to lumbar spinal stenosis: Admission and Anticipated Discharge Date Admission Date: November 03, 2020 Patient will continue physical therapy monitor her VALERIANO output anticipate discharge home tomorrow. Subjective Back pain controlled leg symptoms improved. Physical Exam Physical Exam: Patient is ambulating halls with a walker. She is comfortable. Is good strength testing. Results & Data ([facility]) Vital Signs (Past 12 Hours) Vital Signs Temp Pulse Resp BP Pulse Ox 11/05/20 08:30 36.7 C 87 16 110/60 92
[2020-11-05] MEDS: MAGNESIUM HYDROXIDE SUSP 30 ML UDC PO PRN (12:02)
[2020-11-05] MEDS ORDERED: bisacodyL 10 MG SUPP PR PRN (15:03)
[2020-11-05] MEDS: DOCUSATE SODIUM/SENNA 50/8.6MG TAB PO SCH (21:10)
[2020-11-06] MEDS: oxyCODONE HCL IR 5 MG TAB (IMMEDIATE RELEASE) PO PRN ×3 (00:03→11:27)
[2020-11-06] MEDS: POLYETHYLENE (MIRALAX) 17 GM PACK PO SCH ×2 (06:34→11:14)
[2020-11-06] MEDS: MAGNESIUM HYDROXIDE SUSP 30 ML UDC PO PRN (07:26)
[2020-11-06] MEDS: METHOCARBAMOL 750 MG TABLET PO SCH (07:26)
[2020-11-06] MEDS: dexAMETHasone 8 MG in SYRINGE 0 ML IV SCH (07:27)
[2020-11-06] MEDS: IRON SUCROSE 200 MG in 0.9 % SODIUM CHLORIDE 100 ML IV SCH (07:28)
[2020-11-06] MEDS: ADVANCED PROBIOTIC 1250 MG CAPSULE PO SCH (08:29)
[2020-11-06] MEDS: CEROVITE ADV FORMULA TAB PO SCH (08:29)
[2020-11-06] MEDS: DULoxetine HCL 20 MG CAP PO SCH (08:29)
--- NOTE | 2020-11-06 09:40 | Discharge Summary ---
Date of Service November 06, 2020 Admission HPI Per Admitting Provider This is a 60-year-old female who presents with chronic persistent back and leg pain. Failing course of nonoperative care she is here for surgical invention. Principal Diagnosis Lumbar spinal stenosis with neurogenic claudication Discharge Data Allergies Allergy/AdvReac Type Severity Reaction Status Date / Time celecoxib [From Celebrex] AdvReac Intermediate mouth Verified 11/03/20 11:12 ulcers diclofenac AdvReac Intermediate mouth Verified 11/03/20 11:12 ulcers diphenhydramine AdvReac Intermediate HYPER Verified 11/03/20 11:12 tramadol AdvReac Intermediate itching, Verified 11/03/20 11:12 mouth ulcers Consultations 11/03/20 17:02 Consult Case Management - Discharge Planning Routine Consult Hospitalist Routine Procedures Performed Operation Date: 11/03/20 12:15 Actual Procedures p L4-S1 Decompression and Fusion, Application of Bone Morphogenetic Protein and Allograft, Spinal Cord Monitoring - Zbigniew Chiang DO Ordered Studies 11/03/20 12:15 FL fluoroscopy <1hr Routine FL lumbar spine 2-3V Routine Hospital Course (1) Neurogenic claudication due to lumbar spinal stenosis: Patient went lumbar decompression fusion tolerates well second orthopedic for postoperative. Postop day 1 she was up and ambulating proceeded through postop day #2 on postop day 3 VALERIANO drain decreased probably. Pain well controlled. Subsequently discharged home. Discharge orders instructions from the chart for further review. Total Time Total Time Spent Total Time Spent (In Minutes): 20 minutes Discharge Plan Discharge Items Patient Disposition: Home - Self-Care Reason For Visit: Spinal Stenosis, Lumbar Region with Neurogenic Cla Discharge Diagnosis: Lumbar spinal stenosis with neurogenic claudication Activity: As commented below Non-emergency contact: Primary Care Provider Call non-emergency contact if: you have any medication questions Follow-up/Referrals: Usha Kuo CRNP [Primary Care Provider] - Diet: Regular Addtl Attending Provider Instructions: ACTIVITY RECOMMENDATIONS: SELF CARE INSTRUCTIONS AFTER THORACIC/LUMBAR FUSIONS 1. You may walk to your tolerance. It is good exercise for your legs and back. Expect some back and intermittent leg aches and pains. 2. You may perform "counter-top" level activities (make a sandwich, ann with a project, etc.). 3. No bending or lifting of more than 10 pounds or back twisting of any nature (roll like a log when turning in bed). 4. You may ride in a car for 20-30 minutes at a time. No driving until after your first visit with your doctor. 5. Frequent changes of position and restricting sitting to 30 minutes at a time will help limit the amount of back spasms and stiffness you may experience. 6. You may discontinue the use of ambulatory aids (cane, crutches, etc.) once your strength and confidence allow. 7. You may engineer specialist the shower and let water strike your incision when you arrive home at least once daily. Do not take a tub bath, sit in a hot tub or go into a swimming pool until after your first recheck in the office. SPECIAL CARE INSTRUCTIONS: VERY IMPORTANT TO READ AND REVIEW A. Your surgical incision has been closed with a cosmetic suture under the skin that will dissolve in about 6 weeks. In 14 days, you can use a pair of clean scissors and cut the suture that is left outside of the skin at the ends of your incision. 1. The small skin tapes can be removed 7 days after surgery if they have not fallen off by that point. 2. You may keep the wound open to air as much as possible to promote healing after post-op day number 5 unless told otherwise by your doctor. 3. If you think the wound looks like it is becoming infected (redness or worsening drainage) and/or you are experiencing fever, chill or worsening back pain and muscle spasms, contact the office so that we may evaluate you as soon as possible. B. Complications are uncommon, but please contact us if you have any signs or symptoms of: 1. wound infection (fever higher than 102.5 degrees F, redness, separation of wound, drainage, or increasing pain from the incision) 2. blood clots in legs (pain, swelling, redness and warmth in legs) 3. urinary tract infection (fever higher than 102.5 degrees F, burning upon urination or increased frequency of urination) 4. nerve problems (inability to walk on your toes or heels, numbness, loss of bowel or bladder control) 5. any other symptoms that concern you C. Please call the office at if you have any concerns or questions about your operation or recovery. D. No smoking! Smoking drastically decreases the chance of a solid fusion. E. Do not take any anti-inflammatory medications (Indocin, Advil, Motrin, Aspirin, Naprosyn, etc.) as these may inhibit the chance of a solid fusion. Tylenol is okay to take for pain. MANAGING PAIN AFTER SPINAL SURGERY 1. Narcotic medication is intended for short-term use and will be provided for surgical pain. Surgical pain usually lasts for a period of 4-6 weeks. Narcotic medication includes Percocet, Vicodin, Darvocet, Tylenol #3 or Lortab. 2. Longer-term pain is more appropriately treated with non-narcotic medication such as Tylenol ES. 3. Muscle spasm is not appropriately treated with narcotics. Muscle relaxers such as Soma, Flexeril or Skelaxin can be used along with Tylenol ES. 4. Remember that we all live with some "aches and pains". This is not unusual or uncommon after an injury or as we get older. a. Back pain is expected and may include muscle spasms for 4 to 6 weeks aft er surgery. The pain should gradually improve. If the pain worsens for no apparent reason, please contact the office. b. Intermittent leg pain may also be experienced and should not be concerned about unless it worsens for no apparent reason. If so, please contact the office. 5. We will provide appropriate medication within the normal guidelines of their prescribed use. We will also be very cautious and aware of potential abuse and extended duration of patients' medication needs. a. Pain medications are for your comfort and to assist with sleep and rest so that the tissue can heal. They are not provided in order to return to normal activity and should not be used through the day. To do so or worsening pain at night can result from ongoing tissue damage and development of tolerance to the prescribed medicine. 6. Please allow 2-3 days to process refills. Prescriptions will not be mailed but must be picked up at the office. FOLLOW UP VISIT: Keep your scheduled follow-up appointment. Any questions, please call the office at . Pending Studies at Discharge: No Stand-Alone Forms: [employer], Smoking Cessation Medications and DC Order Prescriptions: New oxycodone 5 mg tablet 5 mg PO Q6H PRN (Reason: pain, severe) Qty: 30 RF: 0 tramadol 50 mg tablet 50 mg PO Q6H PRN (Reason: pain, moderate) Qty: 30 RF: 0 Continued oxycodone 5 mg tablet 5 - 10 mg PO Q6H PRN (Reason: pain) Qty: 8 RF: 0 methocarbamol 750 mg tablet 750 mg PO TID Qty: 60 RF: 3 omeprazole 20 mg capsule,delayed release(DR/EC) 20 mg PO DAILY PRN (Reason: takes with NSAIDS) Qty: 30 RF: 11 duloxetine [Cymbalta] 20 mg capsule,delayed release(DR/EC) 20 mg PO DAILY Qty: 30 RF: 5 One Daily Multi-Vit w-Mineral 4.5 mg iron tablet 1 mg PO QAM RF: 0 Probiotic 10 billion cell Capsule 10,000 mmu cells PO QAM RF: 0 Tylenol Extra Strength 500 mg 2 tab PO BID PRN (Reason: Pain) RF: 0 Discontinued ibuprofen [Advil] 200 mg tablet 400 mg PO Q6H PRN (Reason: Pain) RF: 0 Discharge Orders: Discharge Order (Routine); Ordered 11/06/20 Ordered By: Zbigniew Chiang Admission Data Admit Date/Time: 11/03/20 15:43 Attending Provider: Zbigniew Chiang Admit Provider: Zbigniew Chiang Primary Care Provider: Usha Kuo Other Providers: Josue Goff
== END 2020-11-06 11:33 | disposition home or self-care (01) | DRG 454 ==
LOC: ASU 10:34 → 3E 15:43